=== PATIENT | male | born 1930 | race Caucasian/White ===

== ENCOUNTER 2018-03-20 01:28 | Inpatient (IN) | payer OTHER, BC ==
--- NOTE | 2018-03-20 01:31 | EDPHY ---
H & P Time Seen by Provider: 03/20/18 01:31 HPI/ROS: HPI CHIEF COMPLAINT: Lower abdominal pain, nausea, vomiting HISTORY OF PRESENT ILLNESS: 87-year-old male, presents emergency room from a private residence with his by EMS for nausea vomiting and lower abdominal pain. Patient states he has developed lower abdominal pain around 8:30 p.m.. Sore having nausea vomiting. He felt very lightheaded and dizzy. Denies chest pain or shortness of breath. Main complaint ongoing nausea. His called 911. Patient states he does not take any medications Past Medical History: Patient denies any significant medical history Past Surgical History: Denies any significant surgical history Social History: Patient denies drugs alcohol tobacco. Family History: Noncontributory ROS REVIEW OF SYSTEMS: 10 Systems were reviewed and negative with the exception of the elements mentioned in the history of present illness. Exam Constitutional elderly nontoxic triage nursing summary reviewed, vital signs reviewed, awake/alert. Noted be bradycardic upon arrival Eyes normal conjunctivae and sclera, EOMI, PERRLA. HENT normal inspection, atraumatic, moist mucus membranes, no epistaxis, neck supple/ no meningismus, no raccoon eyes. Respiratory clear to auscultation bilaterally, normal breath sounds, no respiratory distress, no wheezing. Cardiovascular bradycardic, regular rhythm, no murmur, no edema, distal pulses normal. Gastrointestinal soft, non-tender, no rebound, no guarding, normal bowel sounds, no distension, no pulsatile mass. Genitourinary no CVA tenderness. Musculoskeletal no midline vertebral tenderness, full range of motion, no calf swelling, no tenderness of extremities, no meningismus, good pulses, neurovascularly intact. Skin pink, warm, & dry, no rash, skin atraumatic. Neurologic awake, alert and oriented x 3, AAOx3, moves all 4 extremities equally, motor intact, sensory intact, CN II-XII intact, normal cerebellar, normal vision, normal speech. Psychiatric normal mood/affect. Heme/Lymph/Immune no lymphadenopathy. Differential diagnosis includes but is not limited to and in no particular order : Bowel obstruction, appendicitis, gallbladder disease, diverticulitis, colitis , enteritis, perforated viscus, gastritis, GERD, esophagitis, urinary tract infection, pyelonephritis, kidney stones Medical Decision Making: Plan for this patient IV establishment IV fluid bolus , EKG due to bradycardia, electrolytes, check troponin, chest x-ray, CT scan abdomen pelvis with IV contrast to nausea vomiting and abdominal pain. Re-evaluation: EKG interpretation by me on record in [employer] system. Impression time of EKG 1:35 a.m., sinus bradycardia rate of 39 RI interval 328, Q-waves to 3 AVF, T -wave abnormalities V4 V5 V6. 0152: Spoke with Dr. Torrez, he has reviewed this patient's bradycardic EKG in the setting that has Q-waves in inferior leads, some T-wave abnormalities in V4 V5 V6 is noted to be very bradycardic. Minimal ST elevation in the lateral leads. The patient does not have chest pain. Dr Torrez reviewed this EKG does not feel this is ischemic EKG believes this is bradycardic due to underlying GI illness with nausea vomiting. Recommends giving a dose atropine. IV fluids. Would not recommend a cardiac alert. 0200: Patient was given 1 mg IV atropine, and IV fluids. Current heart rate is in the 70s. EKG interpretation by me on record in [employer] system. Impression time of EKG this is a repeat EKG 2:35 a.m., sinus rhythm rate of 87 with PVC present. No ST elevation. Much improved from previous EKG that was bradycardic most likely vagal response. CT scan abdomen pelvis with IV contrast called to me by Dr. Willis. Negative for acute inflammatory process. Please see full dictation for details of the report. Chest x-ray shows cardiomegaly. Hypoinflated lungs. CT scan shows no evidence of acute inflammatory process. Urinalysis still pending. Patient's heart rate is much improved in the 60s after 1 of atropine IV fluids. Most likely vagal response causing bradycardia. Patient will be admitted overnight for observation to Dr. Vasquez. Plan for admission bradycardia. Plan for admission for nausea vomiting and abdominal pain and bradycardia. Source: Patient, EMS - Personal History Tetanus Vaccine Date: unknown - Medical/Surgical History Hx Asthma: No Hx Chronic Respiratory Disease: No Hx Diabetes: No Hx Cardiac Disease: No Hx Renal Disease: No Hx Cirrhosis: No Hx Alcoholism: No Hx HIV/AIDS: No Hx Splenectomy or Spleen Trauma: No Other PMH: enlarged prostate, intermittent PVCs, appendectomy, inguinal hernia repair - Social History Smoking Status: Never smoked Constitutional: Initial Vital Signs Temperature (C) 36.3 C 03/20/18 01:34 Heart Rate 42 L 03/20/18 01:34 Respiratory Rate 18 03/20/18 01:34 Blood Pressure 105/51 L 03/20/18 01:34 O2 Sat (%) 93 03/20/18 01:34 O2 Delivery Mode Nasal Cannula O2 (L/minute) 3 Allergies/Adverse Reactions: ofloxacin [From Floxin] Allergy (Intermediate, Verified 02/10/13 14:40) Rash Sulfa (Sulfonamide Antibiotics) Allergy (Verified 05/02/14 16:48) Home Medications: Medication Instructions Recorded Carboxymethylcellulose 1% [Refresh 1 drop EACHEYE DAILY PRN 03/20/18 Celluvisc (*)] Finasteride [Proscar 5 MG (*)] 5 mg PO DAILY 03/20/18 Multivitamins [Multivitamin (*)] 1 each PO DAILY 03/20/18 [place]ternut-3 Fatty Acids [Fish Oil 1000 1,000 mg PO DAILY 03/20/18 mg (*)] Medical Decision Making - Data Points Laboratory Results: Laboratory Results 03/20/18 01:50 03/20/18 01:48 Medications Given: Acetaminophen (Tylenol) 1,000 mg PO TID PRN PRN Reason: Mild to moderate pain Stop: 09/16/18 03:33 Last Admin: 03/20/18 21:28 Dose: 500 mg Enoxaparin Sodium (Lovenox) 40 mg SC DAILY SCOTTIE Stop: 09/16/18 08:59 Last Admin: 03/20/18 08:18 Dose: 40 mg Finasteride (Proscar) 5 mg PO DAILY SCOTTIE Stop: 09/16/18 10:59 Last Admin: 03/20/18 12:02 Dose: 5 mg Sodium Chloride (Ns) 1,000 mls @ 100 mls/hr IV CONT SCOTTIE Stop: 09/16/18 04:14 Last Admin: 03/20/18 15:36 Dose: 1,000 mls Ceftriaxone Sodium/Dextrose (Rocephin 1 Gm (Premix)) 50 mls @ 100 mls/hr IV DAILY SCOTTIE PRN Reason: Protocol Stop: 04/19/18 12:59 Last Admin: 03/20/18 13:40 Dose: 50 mls Pantoprazole Sodium (Protonix) 40 mg IVP DAILY SCOTTIE Stop: 09/16/18 12:44 Last Admin: 03/20/18 13:39 Dose: 40 mg Discontinued Medications Atropine Sulfate (Atropine Sulfate) 1 mg IVP EDNOW ONE Stop: 03/20/18 01:51 Last Admin: 03/20/18 01:59 Dose: 1 mg Sodium Chloride (Ns) 500 mls @ 1,000 mls/hr IV EDNOW ONE PRN Reason: Protocol Stop: 03/20/18 02:04 Last Admin: 03/20/18 01:43 Dose: 500 mls Sodium Chloride (Ns) 500 mls @ 0 mls/hr IV ONCE ONE PRN Reason: Wide Open Stop: 03/20/18 01:54 Last Admin: 03/20/18 02:00 Dose: 500 mls Sodium Chloride (Ns) 1,000 mls @ 0 mls/hr IV ONCE ONE PRN Reason: Wide Open Stop: 03/20/18 02:27 Last Admin: 03/20/18 02:27 Dose: 1,000 mls Promethazine HCl (Phenergan) 6.25 mg IVP ONCE ONE Stop: 03/20/18 02:17 Last Admin: 03/20/18 02:27 Dose: 6.25 mg Promethazine HCl (Phenergan) 6.25 mg IVP ONCE ONE Stop: 03/20/18 03:28 Last Admin: 03/20/18 03:30 Dose: 6.25 mg Point of Care Test Results: Chemistry 03/20/18 01:50 POC Troponin I 0.01 ng/mL ng/mL (0.00-0.08) Departure - Departure Disposition: [facility] In[facility] Acute Clinical Impression: Bradycardia Abdominal pain Qualifiers: Abdominal location: unspecified location Qualified Code(s): R10.9 - Unspecified abdominal pain Vomiting Qualifiers: Vomiting type: unspecified Vomiting Intractability: non-intractable Nausea presence: with nausea Qualified Code(s): R11.2 - Nausea with vomiting, unspecified Condition: Critical
[2018-03-20] MEDS ORDERED: NS 500 ML IV ONE ×2 (01:35→01:53)
[2018-03-20] MEDS ORDERED: ATROPINE SULFATE 1 MG/ML VIAL IVP ONE (01:50)
[2018-03-20 01:58] LABS: PLATELET COUNT 150 10^3/uL (150-400)
[2018-03-20 02:06] LABS: INR 1.1 (0.83-1.16); PROTIME(PATIENT) 14.4 SEC (12.0-15.0)
[2018-03-20] MEDS ORDERED: IOPAMIDOL (ISOVUE-300) 100 ML BTL ONE (02:09)
[2018-03-20] MEDS ORDERED: PROMETHAZINE HCL 25 MG/ML INJ IVP ONE ×2 (02:16→03:27)
[2018-03-20] MEDS ORDERED: NS 1,000 ML IV ONE (02:26)
[2018-03-20] MEDS ORDERED: PROMETHAZINE HCL 25 MG/ML INJ ONE (03:28)
[2018-03-20] MEDS ORDERED: ACETAMINOPHEN 325 MG TAB PO PRN (03:34)
[2018-03-20] MEDS ORDERED: ONDANSETRON DISINTEGRATING 4 MG TAB PO PRN (03:34)
[2018-03-20] MEDS ORDERED: ONDANSETRON 4 MG/2 ML VIAL IVP PRN (03:34)
--- NOTE | 2018-03-20 03:50 | PDGENHP ---
History and Physical - Chief Complaint Abominal pain - History of Present Illness 87 yo M w/ minimal PMHx presents with abdominal pain. He says this pain started around 8 PM. He has a hard time describing the pain. It started around 8 PM after eating a rotisserie chicken earlier in the day. He started vomiting shortly after the pain started. He states the pain is supra-pubic and derick- umbilical. He says the chicken did not taste right. He ate more of the chicken than his or daughter. He has not had similar symptoms in a long time. This reminds him of a time he got sick after eating in a restaurant 40 years ago an he got sick in a motel room. He denies any recent illness or sick contacts. Upon arrival in the ED patient was noted to be bradycardic to the 30's in setting of severe pain. Cardiology was called who thought this was vagal induced bradycardia from the pain. He was treated with atropine and heart rate has been >[address] scan in the ED did not reveal acute findings. Case discussed with ED physician Dr. Rausch; records reviewed in [facility] and [place]. History Information - Allergies/Home Medication List Allergies/Adverse Reactions: ofloxacin [From Floxin] Allergy (Intermediate, Verified 02/10/13 14:40) Rash Sulfa (Sulfonamide Antibiotics) Allergy (Verified 05/02/14 16:48) Home Medications: Alpha Lipoic Acid [Alpha Lipoic Acid] 200 mg PO 02/10/13 [Last Taken Unknown] Bimatoprost 0.01% [Lumigan 0.01% (RX)] 1 drops EACHEYE HS 02/10/13 [Last Taken Unknown] Finasteride [Proscar] 5 mg PO DAILY 02/10/13 [Last Taken Unknown] Furosemide [Lasix] 20 mg PO 02/10/13 [Last Taken Unknown] Glucosam/Chondr/Collagn/Hyalur [Glucosamine & Chondroitin Cap] 1 each PO [Last Taken Unknown] Multivitamins [Tab-A-Joshua] 1 each PO DAILY 02/10/13 [Last Taken Unknown] [place]-3/Dha/Epa/Fish Oil [Fish Oil] 500 mg PO 02/10/13 [Last Taken Unknown] Optive Lub Eye Drops 02/10/13 [Last Taken Unknown] Tamsulosin HCl [Flomax 0.4 MG (RX)] 0.4 mg PO DAILY8 02/10/13 [Last Taken Unknown] Ubidecarenone [Coq-10] 30 mg PO 02/10/13 [Last Taken Unknown] I have personally reviewed and updated: family history, medical history - Past Medical History arthritis Additional medical history: BPH - Surgical History Reports: appendectomy, hernia repair - Family History Additional family history: CHF - Social History Smoking Status: Never smoked Review of Systems Review of Systems: ROS: 10pt was reviewed & negative except for what was stated in HPI & below Physical Exam Physical Exam: Temp Pulse Resp BP Pulse Ox 36.4 C 88 16 123/54 H 94 03/20/18 03:30 03/20/18 03:30 03/20/18 03:30 03/20/18 03:30 03/20/18 03:30 Constitutional: appears nourished, uncomfortable Eyes: PERRL, EOMI Ears, Nose, Mouth, Throat: moist mucous membranes, no oral mucosal ulcers Cardiovascular: regular rate and rhythym, no murmur, rub, or gallop Respiratory: no respiratory distress, clear to auscultation Gastrointestinal: normoactive bowel sounds, soft, non-tender abdomen Skin: warm, normal color Musculoskeletal: full muscle strength, no muscle tenderness Neurologic: AAOx3, CN II-XII Intact Psychiatric: interacting appropriately, not anxious Lab Data & Imaging Review 03/20/18 01:50 03/20/18 01:48 WBC 7.47 10^3/uL (3.80-9.50) 03/20/18 01:50 RBC 5.30 10^6/uL (4.40-6.38) 03/20/18 01:50 Hgb 16.8 g/dL (13.7-17.5) 03/20/18 01:50 Hct 50.3 % (40.0-51.0) 03/20/18 01:50 MCV 94.9 fL (81.5-99.8) 03/20/18 01:50 MCH 31.7 pg (27.9-34.1) 03/20/18 01:50 MCHC 33.4 g/dL (32.4-36.7) 03/20/18 01:50 RDW 14.0 % (11.5-15.2) 03/20/18 01:50 Plt Count 150 10^3/uL (150-400) 03/20/18 01:50 MPV 9.7 fL (8.7-11.7) 03/20/18 01:50 Neut % (Auto) 77.3 % (39.3-74.2) H 03/20/18 01:50 Lymph % (Auto) 14.7 % (15.0-45.0) L 03/20/18 01:50 Mcnairy % (Auto) 6.7 % (4.5-13.0) 03/20/18 01:50 Eos % (Auto) 0.8 % (0.6-7.6) 03/20/18 01:50 Baso % (Auto) 0.1 % (0.3-1.7) L 03/20/18 01:50 Nucleat RBC Rel Count 0.0 % (0.0-0.2) 03/20/18 01:50 Absolute Neuts (auto) 5.77 10^3/uL (1.70-6.50) 03/20/18 01:50 Absolute Lymphs (auto) 1.10 10^3/uL (1.00-3.00) 03/20/18 01:50 Absolute Monos (auto) 0.50 10^3/uL (0.30-0.80) 03/20/18 01:50 Absolute Eos (auto) 0.06 10^3/uL (0.03-0.40) 03/20/18 01:50 Absolute Basos (auto) 0.01 10^3/uL (0.02-0.10) L 03/20/18 01:50 Absolute Nucleated RBC 0.00 10^3/uL (0-0.01) 03/20/18 01:50 Immature Gran % 0.4 % (0.0-1.1) 03/20/18 01:50 Immature Gran # 0.03 10^3/uL (0.00-0.10) 03/20/18 01:50 PT 14.4 SEC (12.0-15.0) 03/20/18 01:48 INR 1.10 (0.83-1.16) 03/20/18 01:48 APTT 33.1 SEC (23.0-38.0) 03/20/18 01:48 VBG Lactic Acid 2.4 mmol/L (0.7-2.1) H 03/20/18 03:10 Sodium 139 mEq/L (135-145) 03/20/18 01:48 Potassium 4.0 mEq/L (3.3-5.0) 03/20/18 01:48 Chloride 106 mEq/L (97-110) 03/20/18 01:48 Carbon Dioxide 20 mEq/l (22-31) L 03/20/18 01:48 Anion Gap 13 mEq/L (6-14) 03/20/18 01:48 BUN 23 mg/dL (7-23) 03/20/18 01:48 Creatinine 1.0 mg/dL (0.7-1.3) 03/20/18 01:48 Estimated GFR > 60 03/20/18 01:48 Glucose 163 mg/dL (70-100) H 03/20/18 01:48 Calcium 9.2 mg/dL (8.5-10.4) 03/20/18 01:48 Magnesium 2.1 mg/dL (1.6-2.3) 03/20/18 01:48 Total Bilirubin 1.2 mg/dL (0.1-1.4) 03/20/18 01:48 Conjugated Bilirubin 0.2 mg/dL (0.0-0.5) 03/20/18 01:48 Unconjugated Bilirubin 1.0 mg/dL (0.0-1.1) 03/20/18 01:48 AST 42 IU/L (17-59) 03/20/18 01:48 ALT 28 IU/L (21-72) 03/20/18 01:48 Alkaline Phosphatase 92 IU/L (38-126) 03/20/18 01:48 POC Troponin I 0.01 ng/mL (0.00-0.08) 03/20/18 01:50 NT-Pro-B Natriuret Pep 697 pg/mL (0-450) H 03/20/18 01:48 Total Protein 7.3 g/dL (6.3-8.2) 03/20/18 01:48 Albumin 3.9 g/dL (3.5-5.0) 03/20/18 01:48 Lipase 148 IU/L (23-300) 03/20/18 01:48 Imaging Review: CT A/P: CT AP Punctate calcs pancreas; sequelae of chronic pancreatitis, Nothing acute Resolved panc cyst in tail Renal cysts Very large prostate about 3 bladder calculi in Bladder subtle hazy mesentary centrally w/o etiology DDD Stable small 1cm lucency left iliac wing Spoke w Dr Rausch at 320am Visualized and Interpreted EKG results: Yes EKG Interpretation: Positive for: other (Sinus abdiaziz, PVCs) Assessment & Plan Assessment: 87 yo M presents with abdominal pain, vomiting, and sinus bradycardia. Plan: 1. Abdominal pain - Associated with nausea and vomiting; symptoms started after eating rotisserie chicken that "did not taste right". CT A/P in the ED did not reveal alternate etiology. He denies recent illnesses or sick contacts. - Admit for observation - mIVF, pain control, anti-emetics PRN - Clear liquids, ADAT - Check UA 2. Sinus bradycardia - I suspect this was vagally mediated bradycardia due to pain and vomiting. Cardiology consulted in the ED who agreed with this interpretation. - S/p atropine x1, bradycardia resolved - Observe in PCU - Monitor on telemetry 3. Lactic acidosis - Lactate 2.4 on admission, suspect due to nausea and vomiting. CT scan and abdominal exam reassuring. - Continue IVF 4. BPH - Large prostate demonstrated on CT; patient tells me he takes no medication. Diet - Clears, ADAT Code - Full Ppx - LMWH Dispo - Admit under observation status
[2018-03-20] MEDS: ENOXAPARIN 40 MG/0.4 ML SYR SC SCH (08:18)
--- NOTE | 2018-03-20 11:29 | ASMTCMCOM ---
CM Note CM Note Notes: Pts case reviewed in tx rounds. Pt is a 87 y/o man admitted for abdominal pain. PT has been ordered and awaiting recommendations. Needs are TBD at this time. CM to follow. Plan: TBD Date Signed: 03/20/2018 11:28 AM Electronically Signed By:MICHAEL Lua
[2018-03-20] MEDS: FINASTERIDE 5 MG TAB PO SCH (12:02)
--- NOTE | 2018-03-20 12:47 | HOSPPROG ---
Hospitalist Progress Note Assessment/Plan: * N/V/abd pain -CT negative -still vomiting - not tolerating clear liquids -? viral gastroenteritis vs food borne -continue supportive care - consider further w/u if N/V persists * Hypoxia -check CXR * Bradycardia - symptomatic on presentation but complicated given N/V -check ECHO -d/w Fabi Jones - cardiology to consult * Chronic pancreatitis - denies and Etoh history -denies any digestive issues prior to acute onset at presentation * Lactate elevation - suspect due to dehydration - now clearing * UTI -IV ceftriaxone pending culture * BPH -Proscar Subjective: Tolerated broth but then vomited it up. Objective: Vital Signs Temp Pulse Resp BP Pulse Ox 36.4 C 50 L 25 H 127/63 H 93 03/20/18 07:25 03/20/18 07:25 03/20/18 07:25 03/20/18 07:25 03/20/18 07:25 03/19/18 03/20/18 03/21/18 05:59 05:59 05:59 Intake Total 2000 500 Output Total 250 Balance 2000 250 PT 14.4 SEC (12.0-15.0) 03/20/18 01:48 INR 1.10 (0.83-1.16) 03/20/18 01:48 EKG viewed my personal interpretation is - long KS interval, bradycardic, ectopy CXR - negative Laboratory Tests 03/20/18 03/20/18 03/20/18 01:48 01:50 01:50 WBC 7.47 Hct 50.3 VBG Lactic Acid POC Troponin I 0.01 NT-Pro-B Natriuret Pep 697 H 03/20/18 03/20/18 03/20/18 03:10 04:11 11:30 WBC Hct VBG Lactic Acid 2.4 H 2.6 H 1.9 POC Troponin I NT-Pro-B Natriuret Pep - Physical Exam Constitutional: no apparent distress, appears nourished, not in pain Cardiovascular: regular rate and rhythym, no murmur, rub, or gallop Respiratory: no respiratory distress, no rales or rhonchi, clear to auscultation Gastrointestinal: normoactive bowel sounds, soft, non-tender abdomen, no palpable masses Skin: no rashes or abrasions, no fluctuance, no induration Neurologic: AAOx3, sensation intact bilaterally Psychiatric: interacting appropriately, not anxious, not encephalopathic, thought process linear ICD10 Worksheet Patient Problems: Problems Problem Status Onset Abdominal pain Acute Bradycardia Acute Vomiting Acute
--- NOTE | 2018-03-20 12:49 | ASMTCMCOM ---
CM Note CM Note Notes: CM spoke to pts daughter Christina. Christina will be going out of town tomorrow and requested a list of non skilled home care to be w/ pts . Christina also wanted a list/cost of transportation to get pt home. Date Signed: 03/20/2018 12:49 PM Electronically Signed By:MICHAEL Lua
[2018-03-20] MEDS: PANTOPRAZOLE SODIUM 40 MG VIAL IVP SCH (13:39)
[2018-03-20] MEDS: NS 1,000 ML IV SCH (15:36)
--- NOTE | 2018-03-20 16:17 | GCON ---
CARDIOLOGY CONSULTATION REFERRING PHYSICIAN: Sameera Garcia MD REASON FOR CONSULTATION: We were asked by Dr. Garcia of [facility] to evaluate the patient for his arrhythmias and bradycardia detected on telemetry. HISTORY OF PRESENT ILLNESS: The patient is an 87-year-old male with a past medical history significant for BPH and PVCs and PACs, primarily, who presented to the emergency department secondary to abdominal pain. He reports being constipated starting approximately 4 or 5 days ago. He had taken a cocktail of medications, including MiraLAX, milk of magnesia, and prune juice earlier in this week. He proceeded to have multiple bowel movements over a couple of days. On Saturday night, which was last night, he had rotisserie chicken, and it was felt that there was something not quite right about the taste of that meal. He started to note a lower abdominal pain and dry heaving. He presented to the emergency department and had a CT of the abdomen, which showed diverticula without diverticulitis, an enlarged prostate, as well as pancreatic calcifications but no acute abdominal process. In the ED, he had some bradycardia with heart rate down to 30s, which continues to occur on telemetry. He reports that the lower abdominal pain has resolved. He had rather severe vomiting after trying chicken broth today. With the episodes of pain, he did feel lightheaded. He reports a lifetime history of PVCs and PACs that are minimally symptomatic. He has not been experiencing chest pain or dyspnea. PAST MEDICAL HISTORY: Includes arthritis and BPH. PAST SURGICAL HISTORY: Includes appendectomy and hernia repair. OUTPATIENT MEDICATIONS: Reviewed. ALLERGIES: Ofloxacin and sulfonamides. SOCIAL HISTORY: Patient is . He and his live independently in [place]. He denies any tobacco or significant alcohol intake. REVIEW OF SYSTEMS: As per HPI. A complete 10-point review of systems was obtained and is negative, except for what is dictated. FAMILY HISTORY: Family history of CHF. PHYSICAL EXAMINATION: VITAL SIGNS: BP of 116/53, heart rate of 40, respirations 21, O2 saturation 93% on room air, followed by an O2 saturation of 81% on room air, temp of 97.5 degrees Fahrenheit. GENERAL: He is a pleasant male in no apparent distress. He is well groomed. EYES: Without scleral icterus. HEART: Regular rate and rhythm, with no rubs, gallops, or murmurs. LUNGS: Clear. ABDOMEN: Nontender on palpation. He has bowel sounds present. : No Faria present. SKIN: Warm, with normal color. NEURO: No focal deficits detected. PSYCH: The patient is gregarious. LABORATORY DATA: CBC with WBC of 7.47, hemoglobin 16.8, hematocrit 50.3, platelet count of 150. BMP with sodium 139, potassium 4, chloride 106, CO2 20, BUN 23, creatinine 1, glucose of 163. NT proBNP of 697. Lipase of 148. A 12- lead ECG personally interpreted demonstrates sinus bradycardia with a severe first-degree AV block, and a followup ECG shows sinus rhythm with likely Wenckebach pattern. PVCs present. There is an incomplete right bundle branch block. Abdominal CT results reviewed and as dictated in HPI. Chest x-ray shows no definite pneumonia or CHF. IMPRESSION AND PLAN: The patient is an 87-year-old male who presents with abdominal pain, vomiting, and bradycardia. 1. Bradycardia. This is likely vagal in nature due to abdominal pain. We will continue to monitor him on telemetry. 2. Likely Mobitz type 1 on telemetry. An echo has been ordered. We will continue to follow him on telemetry. We will review strips with EP service. 3. Abdominal pain. This is being worked up currently by Hospital Medicine and may be the cause of some of the arrhythmias that are currently being seen in a vagally mediated fashion. We will follow along in patient's care in this hospitalization. /[id number]/MODL MTDD
--- NOTE | 2018-03-20 16:37 | PDMN ---
Medical Necessity Medical necessity: Change to IP, as of 03/20/18, per MD & MCG [id number]; los >2 mn for ongoing management of N/V w/inability to maintain oral hydration, abdominal pain, hypoxia, bradycardia & UTI; requiring further workup/monitoring, Cardiology consult, IVFs, IV abx & IV Protonix; hx chronic pancreatitis
--- NOTE | 2018-03-20 16:39 | ECHO ---
[email or web address] [address] [address] Main: [phone] Fax: Transthoracic Echocardiogram Name: CHENTE ENCISO MR#: [id number] Study Date: 03/20/2018 Study Time: 03:14 PM Date of : 1930 Age: 87 year(s) Height: 170.2 cm (67 in.) Weight: 97.52 kg (215 lb.) BSA: 2.09 m2 Gender: Male Examination: Echo Indication: Bradycardia Image Quality: Fair Contrast: Requested by: Sameera Garcia BP: 116 mmHg/53 mmHg Heart Rate: Rhythm: Indication: Bradycardia Procedure Staff Band Ripsaw Operator: Laurie Marsh [facility] Reading Physician: Timothy Hudson MD Requesting Provider: Conclusions: Low normal left ventricular systolic function. EF is 46 %. LV septal,inferior and entire apical segments are akineti.. The left atrium is mildly to moderately dilated. 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 Mild to moderate mitral regurgitation. The aortic valve is tri-leaflet. Moderate tricuspid regurgitation is present. RVSP is 30mmHG.. Incidental finding - The thoracic aorta appears to be enlarged ( at least 4.5 cm).. Measurements: Chambers Valvular Assessment AV/MV Valvular Assessment TV/PV Normal Normal Normal Name Value Range Name Value Range Name Value Range Ao Obdulia (MM): 3.8 cm (2.2 cm-3.7 AV Vmax: 1.13 m/s (1 m/s-1.7 TR Vmax: 2.71 mm/s ( - ) cm) m/s) TR PGmax: 29 mmHg ( - ) IVSd (2D): 0.6 cm (0.6 cm-1.1 AV meanP mmHg ( - ) syst. PAP: 34 mmHg ( - ) cm) MV E Vmax: 0.46 m/s ( - ) LVDd (2D): 5.6 cm (4.2 cm-5.9 MV A Vmax: 0.87 m/s ( - ) cm) MV E/A: 0.53 ( - ) LVDs (2D): 3.4 cm (2.1 cm-4 cm) LVPWd (2D): 0.9 cm (0.6 cm-1 cm) LVEF (BP): 46 % (>=55 %) Continued Measurements: Chambers Valvular Assessment AV/MV Valvular Assessment TV/PV Patient: CHENTE ENCISO Study Date: 03/20/2018 Page 1 of 2 03:14 PM Name Value Name Value Name Value LADs: 4.8 cm MV E' Septal: 0.04 m/s CVP (est.): 5 mmHg LADs Lon.1 cm MV E/E' Septal: 11.20 LA Area: 28.3 cm2 MV E/E' Lateral: 6.80 LA Volume: 101 ml LA Volume Index: 48.3 ml/m2 Additional Vessels Name Value Ao Ascendin.5 cm Findings: Left Ventricle: Normal size left ventricle. No LV hypertrophy. Low normal left ventricular systolic function. EF is 46 %. LV septal,inferior and entire apical segments are akineti.. Right Ventricle: Normal size right ventricle. Left Atrium: The left atrium is mildly to moderately dilated. 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 Right Atrium: The right atrium is mildly dilated. Mitral Valve: There is mild thickening of the mitral valve leaflets. Mild to moderate mitral regurgitation. Aortic Valve: The aortic valve is normal in appearance and function. The aortic valve is tri-leaflet. Trivial aortic valve regurgitation. Tricuspid Valve: The tricuspid valve is normal in appearance and function. Moderate tricuspid regurgitation is present. The pulmonary artery pressure is normal. RVSP is 30mmHG.. Pulmonic Valve: The pulmonic valve is normal in appearance and function. Aorta: The aorta is normal. Pericardium: No pericardial effusion. Exam Comments: Incidental finding - The thoracic aorta appears to be enlarged ( at least 4.5 cm).. (No Signature Object) Patient: CHENTE ENCISO Study Date: 03/20/2018 Page 2 of 2 03:14 PM [id number]
[2018-03-20] MEDS: ACETAMINOPHEN 500 MG TAB PO PRN (21:28)
--- NOTE | 2018-03-20 23:58 | CPEKG ---
Test Reason : OPEN Blood Pressure : / mmHG Vent. Rate : 039 BPM Atrial Rate : 039 BPM P-R Int : 328 ms QRS Dur : 131 ms QT Int : 631 ms P-R-T Axes : 048 -69 -63 degrees QTc Int : 509 ms Sinus bradycardia Prolonged HI interval Nonspecific IVCD with LAD Probable inferior infarct, age indeterminate Abnrm T, consider ischemia, anterolateral lds Minimal ST elevation, lateral leads Confirmed by Anuj Stubbs ([id number]) on 03/20/2018 11:57:53 PM Also confirmed by Anuj Stubbs ([id number]) on 03/20/2018 11:58:05 PM Referred By: Confirmed By:Anuj Stubbs
--- NOTE | 2018-03-20 23:58 | CPEKG ---
Test Reason : OPEN Blood Pressure : / mmHG Vent. Rate : 087 BPM Atrial Rate : 085 BPM P-R Int : 196 ms QRS Dur : 119 ms QT Int : 447 ms P-R-T Axes : 000 -61 004 degrees QTc Int : 538 ms Sinus rhythm Multiform ventricular premature complexes Sinus pause LAD, consider left anterior fascicular block Confirmed by Anuj Stubbs ([id number]) on 03/20/2018 11:57:53 PM Also confirmed by Anuj Stubbs ([id number]) on 03/20/2018 11:58:05 PM Referred By: Confirmed By:Anuj Stubbs
[2018-03-21 04:37] LABS: PLATELET COUNT 135 10^3/uL (150-400)
[2018-03-21] MEDS: PANTOPRAZOLE SODIUM 40 MG VIAL IVP SCH (08:56)
[2018-03-21] MEDS: FINASTERIDE 5 MG TAB PO SCH (08:56)
[2018-03-21] MEDS: ENOXAPARIN 40 MG/0.4 ML SYR SC SCH (08:57)
--- NOTE | 2018-03-21 11:23 | CPEKG ---
Test Reason : OPEN Blood Pressure : / mmHG Vent. Rate : 042 BPM Atrial Rate : 063 BPM P-R Int : 317 ms QRS Dur : 117 ms QT Int : 553 ms P-R-T Axes : 047 -88 -84 degrees QTc Int : 463 ms Sinus bradycardia Prolonged WV interval Nonspecific IVCD with LAD Inferior infarct, age indeterminate Abnrm T, consider ischemia, anterolateral lds Heart rates have slowed dramatically since the prior ECG Confirmed by Ollie Diamond ([id number]) on 03/21/2018 11:23:08 AM Referred By: Confirmed By:Ollie Diamond
--- NOTE | 2018-03-21 11:40 | PDCARPN ---
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 Found to have bradycardia. Strips reviewed with Dr. 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 Additionally, echo shows reduced EF at 45% and segmental WMA including inferior, septal, and the entire apex being akinetic. #. abnormal echo: our plan was to do Lexiscan but this is being held until pacer implantation is complete extensive WMA suggestive of likely previous AK we discussed possibility of LHC will discuss with supervising notch grinder R/B/A of [facility] reviewed #. 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 abdominal pain/nausea/V: improving per hospitalist service Plan: 03/21/18 11:33 03/21/18 11:40 Subjective: Pt is gregarious and tells tangential stories. Reviewed/Discussed With: hospitalist (Dr. Garcia) Objective: Vital Signs (8 Hrs) Temp Pulse Resp BP Pulse Ox 03/21/18 09:30 44 L 116/52 L 96 03/21/18 08:00 98.1 F 42 L 21 H 118/53 L 94 03/21/18 04:00 98.4 F 40 L 20 99/39 L 99 Intake/Output (24 Hrs) 03/20/18 03/21/18 03/22/18 05:59 05:59 05:59 Intake Total 3300 Output Total 550 200 Balance 2750 -200 Intake: Oral (ml) 900 IV Infused (ml) 2400 Ns 1,000 ml @ 100 mls/hr 2350 IV CONT SCOTTIE Rx#: [id number] cefTRIAXone 1 GM/DEXTROSE 50 50 ml @ 100 mls/hr IV DAILY SCOTTIE Rx#:[id number] Output: Urine (ml) 550 200 Incontinence 100 Toilet 450 100 Urinal 100 Other: Weight 98.4 kg Number of Voids Incontinence 2 1 Toilet 1 Urinal 1 Number of Stools Bedside Commode 0 Number of Emesis 1 Occurrences Result Diagrams: 03/21/18 03:54 03/21/18 03:54 Telemetry: reviewed Echocardiogram: reviewed - Physical Exam Constitutional: no apparent distress Eyes: anicteric sclera Cardiovascular: regular rate and rhythm Respiratory: clear to auscultate bilat, no crackles Gastrointestinal: normoactive bowel sounds, no tenderness Genitourinary: No paredes in urethra Neurologic: AAOx3 Psychiatric: cooperative, interactive ICD10 Worksheet Patient Problems: Problems Problem Status Onset Abdominal pain Acute Bradycardia Acute Vomiting Acute
[2018-03-21] MEDS: NS 1,000 ML IV SCH (14:56)
--- NOTE | 2018-03-21 16:08 | ASMTCMCOM ---
CM Note CM Note Notes: Pts case discussed in tx rounds. CM met w/ pt for dispo planning. PT is recommending SNF. CM provided pt w/ senior blue book. Pt would like referrals made to [facility] and [facility]. Referrals sent. Non triggering pasrr completed. CM to follow. Plan: SNF Date Signed: 03/21/2018 04:08 PM Electronically Signed By:MICHAEL Lua
--- NOTE | 2018-03-21 17:42 | HOSPPROG ---
Hospitalist Progress Note Assessment/Plan: * Complete heart block -pacemaker indicated - arrangements per cardiology * N/V/abd pain -CT negative -improved - advance diet -? viral gastroenteritis vs food borne * BPH with urinary retention -paredes -on Proscar, add Flomax * New wall motion abnormalities on ECHO -cath vs. stress test after PCM * Chronic pancreatitis - denies and Etoh history -denies any digestive issues prior to acute onset at presentation * Lactate elevation - suspect due to dehydration - now clearing Subjective: No new complaints. 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 - Physical Exam Constitutional: no apparent distress, appears nourished, not in pain Cardiovascular: regular rate and rhythym, no murmur, rub, or gallop Respiratory: no respiratory distress, no rales or rhonchi, clear to auscultation Gastrointestinal: normoactive bowel sounds, soft, non-tender abdomen, no palpable masses Skin: no rashes or abrasions, no fluctuance, no induration Neurologic: AAOx3, sensation intact bilaterally Psychiatric: interacting appropriately, not anxious, not encephalopathic, thought process linear ICD10 Worksheet Patient Problems: Problems Problem Status Onset Bradycardia Acute Abdominal pain Acute Vomiting Acute
[2018-03-22 04:37] LABS: PLATELET COUNT 122 10^3/uL (150-400)
[2018-03-22] MEDS: PANTOPRAZOLE SODIUM 40 MG TAB PO SCH (09:11)
[2018-03-22] MEDS: ENOXAPARIN 40 MG/0.4 ML SYR SC SCH (09:11)
[2018-03-22] MEDS: FINASTERIDE 5 MG TAB PO SCH (09:11)
[2018-03-22] MEDS: TAMSULOSIN HCL 0.4 MG CAP PO SCH (09:11)
--- NOTE | 2018-03-22 11:35 | PDCARPN ---
Cardiology Progress Note Assessment/Plan: Assessment/plan: 87-year-old male admitted with abdominal pain and found to be in complete heart block. No syncope. He is not clinically in heart failure, although echo shows cardiomyopathy with an ejection fraction 45% and regional wall motion abnormalities concerning for coronary disease. 1. Complete heart block: This is intermittent. He is hemodynamically stable and does not require temporary pacemaker. Plan is for permanent pacemaker with Dr. Restrepo, per patient's request, on SaturdayMarch 24. Continue telemetry. Obviously avoid any nodally acting agents. 2. Cardiomyopathy: Does not appear to be in heart failure. Plan for coronary angiography prior to pacemaker on SaturdayMarch 24 to evaluate for coronary disease. No angina. 3. Abdominal pain: Possible gastroenteritis. Improving. His abdominal CT does show chronic pancreatitis. 4. BPH. He has a Faria here. Would attempt to discontinue this prior to pacemaker. Will discuss with Hospital Medicine. He is on BPH medical therapy. 5. Valvular heart disease: [id number] mitral regurgitation. Moderate tricuspid regurgitation. Follow as outpatient. 6. Ascending aortic aneurysm of 4.5 cm seen on echocardiogram. This will require outpatient therapy. Would consider addition of beta-keny or EVERTON- inhibitor after pacemaker. 03/22/18 11:33 Subjective: Denies chest pain, presyncope or dyspnea. Reviewed/Discussed With: hospitalist Objective: Vital Signs (8 Hrs) Temp Pulse Resp BP Pulse Ox 03/22/18 08:36 36.9 C 54 L 16 124/56 H 95 03/22/18 04:00 36.6 C 66 20 113/56 L 94 Intake/Output (24 Hrs) 03/21/18 03/22/18 03/23/18 05:59 05:59 05:59 Intake Total 3300 1025 Output Total 550 2125 Balance 2750 -1100 Intake: Oral (ml) 900 300 IV Infused (ml) 2400 725 Ns 1,000 ml @ 100 mls/hr 2350 725 IV CONT SCOTTIE Rx#: [id number] cefTRIAXone 1 GM/DEXTROSE 50 50 ml @ 100 mls/hr IV DAILY SCOTTIE Rx#:[id number] Output: Urine (ml) 550 2125 Catheter 1625 Incontinence 100 Toilet 450 400 Urinal 100 Other: Weight 98.4 kg Number of Voids Incontinence 2 1 Toilet 3 Urinal 1 Number of Stools Bedside Commode 0 Post Void Residual Scan Volume (ml) Urinal 610 Number of Emesis 1 Occurrences No acute distress. Regular rate and rhythm without murmur or gallop Bibasilar rales without wheeze or rhonchi Trace bilateral lower extremity edema Alert and oriented x3 without gross focal neurologic deficits. Appropriate mood and affect Result Diagrams: 03/22/18 03:48 03/21/18 03:54 EKG: [facility] Telemetry: Periods of CHB ICD10 Worksheet Patient Problems: Problems Problem Status Onset Bradycardia Acute Abdominal pain Acute Vomiting Acute
[2018-03-22] MEDS: NS 1,000 ML IV SCH (14:28)
--- NOTE | 2018-03-22 16:59 | HOSPPROG ---
Hospitalist Progress Note Assessment/Plan: * Complete heart block -pacemaker Saturday with Dr. Restrepo * Viral gastroenteritis - resolved * BPH with urinary retention -paredes placed - 1300cc urine retained -on Proscar, added Flomax * New wall motion abnormalities on ECHO -cath vs. stress test after PCM * Chronic pancreatitis - denies and Etoh history -denies any digestive issues prior to acute onset at presentation * Lactate elevation - suspect due to dehydration - now clearing Subjective: Eating okay Objective: Vital Signs Temp Pulse Resp BP Pulse Ox 36.6 C 118 H 18 123/78 H 95 03/22/18 16:00 03/22/18 16:00 03/22/18 16:00 03/22/18 16:00 03/22/18 16:00 Laboratory Results 03/22/18 03:48 03/21/18 03:54 03/21/18 03/22/18 03/23/18 05:59 05:59 05:59 Intake Total 3300 1025 Output Total 550 2125 350 Balance 2750 -1100 -350 PT 14.4 SEC (12.0-15.0) 03/20/18 01:48 INR 1.10 (0.83-1.16) 03/20/18 01:48 d/w DR. wade regarding paredes options with PCM tele reviewed - intermittent 3rd degree HB - Physical Exam Constitutional: no apparent distress, appears nourished, not in pain Cardiovascular: regular rate and rhythym, no murmur, rub, or gallop Respiratory: no respiratory distress, no rales or rhonchi, clear to auscultation Gastrointestinal: normoactive bowel sounds, soft, non-tender abdomen, no palpable masses Skin: no rashes or abrasions, no fluctuance, no induration Neurologic: AAOx3, sensation intact bilaterally Psychiatric: interacting appropriately, not anxious, not encephalopathic, thought process linear ICD10 Worksheet Patient Problems: Problems Problem Status Onset Bradycardia Acute Abdominal pain Acute Vomiting Acute
[2018-03-23] MEDS: NS 1,000 ML IV SCH ×2 (01:25→08:16)
[2018-03-23] MEDS: ENOXAPARIN 40 MG/0.4 ML SYR SC SCH (09:36)
[2018-03-23] MEDS: PANTOPRAZOLE SODIUM 40 MG TAB PO SCH (09:36)
[2018-03-23] MEDS: TAMSULOSIN HCL 0.4 MG CAP PO SCH (09:36)
[2018-03-23] MEDS: FINASTERIDE 5 MG TAB PO SCH (09:36)
--- NOTE | 2018-03-23 11:51 | PDCARPN ---
Cardiology Progress Note Assessment/Plan: Assessment/plan: 87-year-old male admitted with abdominal pain and found to be in complete heart block. No syncope. Echo shows cardiomyopathy with an ejection fraction 45% and regional wall motion abnormalities concerning for coronary disease. 1. Complete heart block: This is intermittent. He is hemodynamically stable and does not require temporary pacemaker. Plan is for permanent pacemaker with Dr. Restrepo, per patient's request, on SaturdayMarch 24. Continue telemetry. He is not on any nodally acting agents. 2. Cardiomyopathy: Plan for coronary angiography prior to pacemaker on SaturdayMarch 24 to evaluate for coronary disease. No angina. Some edema today but no elevation of JVP or rales. Stop IVF (started for diarrhea and decreased UOP, which have resolved) 3. Abdominal pain: Possible gastroenteritis. Improving. His abdominal CT does show chronic pancreatitis. 4. BPH. He has a Faria here. He is on medical therapy for BPH. Per ID and Dr. Garcia, low risk of infection and unlikely that he will be able to void if Faria removed. He did have 1500 PVR upon admission. 5. Valvular heart disease: [id number] mitral regurgitation. Moderate tricuspid regurgitation. Follow as outpatient. 6. Ascending aortic aneurysm of 4.5 cm seen on echocardiogram. This will require outpatient therapy. Would consider addition of beta-keny or EVERTON- inhibitor after pacemaker. 03/23/18 11:52 Subjective: He reports feeling well. Ambulated without dyspnea or chest pain. He denies presyncope. Reviewed/Discussed With: multidisciplinary team Objective: Vital Signs (8 Hrs) Temp Pulse Resp BP Pulse Ox 03/23/18 11:18 36.7 C 87 16 117/79 95 03/23/18 08:00 36.7 C 75 16 124/69 H 95 03/23/18 04:00 36.3 C 57 L 20 108/65 93 Intake/Output (24 Hrs) 03/22/18 03/23/18 03/24/18 05:59 05:59 05:59 Intake Total 1025 1692 Output Total 2125 825 Balance -1100 867 Intake: Oral (ml) 300 200 IV Infused (ml) 725 1492 Ns 1,000 ml @ 100 mls/hr 725 IV CONT SCOTTIE Rx#: [id number] Ns 1,000 ml @ 100 mls/hr 1492 IV CONT SCOTTIE Rx#: [id number] Output: Urine (ml) 2125 825 Catheter 1625 825 Incontinence 100 Toilet 400 Other: Number of Voids Incontinence 1 Toilet 3 Number of Stools Toilet 1 Post Void Residual Scan Volume (ml) Urinal 610 No acute distress. JVP less than 10. Regular rate and rhythm without murmur or gallop Lungs clear without wheeze rhonchi rales 1+ ankle edema bilaterally Scattered ecchymoses. Faria urine appears dark Result Diagrams: 03/22/18 03:48 03/21/18 03:54 Telemetry: Sinus rhythm. Periods of second-degree heart block. Periods of complete heart block with junctional escape ICD10 Worksheet Patient Problems: Problems Problem Status Onset Bradycardia Acute Abdominal pain Acute Vomiting Acute
--- NOTE | 2018-03-23 15:56 | HOSPPROG ---
Hospitalist Progress Note Assessment/Plan: * Complete heart block - intermittent -pacemaker tomorrow with Dr. Restrepo * Viral gastroenteritis - resolved * BPH with urinary retention -paredes placed - 1300cc urine retained -on Proscar, added Flomax -d/w Dr. Wan -low infection risk given fresh catheter -okay for PCM placement with paredes in place -DC home with paredes - follow-up urology outpatient * New wall motion abnormalities on ECHO -cath vs. stress test after PCM * Chronic pancreatitis - denies any Etoh history -denies any digestive issues prior to acute onset at presentation * Lactate elevation - suspect due to dehydration - now clearing * Right leg edema -check US Subjective: No new complaints. Objective: Vital Signs Temp Pulse Resp BP Pulse Ox 36.4 C 77 16 125/63 H 90 L 03/23/18 15:36 03/23/18 15:36 03/23/18 15:36 03/23/18 15:36 03/23/18 15:36 Laboratory Results 03/22/18 03:48 03/21/18 03:54 03/22/18 03/23/18 03/24/18 05:59 05:59 05:59 Intake Total 1025 1692 600 Output Total 2125 825 375 Balance -1100 867 225 PT 14.4 SEC (12.0-15.0) 03/20/18 01:48 INR 1.10 (0.83-1.16) 03/20/18 01:48 - Physical Exam Constitutional: no apparent distress, appears nourished, not in pain Cardiovascular: regular rate and rhythym, no murmur, rub, or gallop, edema (R>>L ) Respiratory: no respiratory distress, no rales or rhonchi, clear to auscultation Gastrointestinal: normoactive bowel sounds, soft, non-tender abdomen, no palpable masses Skin: no rashes or abrasions, no fluctuance, no induration Neurologic: AAOx3, sensation intact bilaterally Psychiatric: interacting appropriately, not anxious, not encephalopathic, thought process linear ICD10 Worksheet Patient Problems: Problems Problem Status Onset Abdominal pain Acute Bradycardia Acute Vomiting Acute
[2018-03-24] MEDS ORDERED: ceFAZolin 2 GM/DEXTROSE 100 ML IV ONE (08:24)
[2018-03-24] MEDS ORDERED: DIAZEPAM 5 MG TAB PO ONE (08:24)
[2018-03-24] MEDS ORDERED: BACITRACIN IRRIGATION/NS 50,000 UNITS/1,000 ML BTL IRR ONE (08:24)
[2018-03-24] MEDS ORDERED: FAMOTIDINE 20 MG TAB PO ONE (08:24)
[2018-03-24] MEDS ORDERED: diphenhydrAMINE 25 MG CAP PO ONE (08:24)
[2018-03-24] MEDS ORDERED: ASPIRIN EC 325 MG TAB PO ONE (08:24)
[2018-03-24] MEDS ORDERED: NS 1,000 ML IV ONE (08:24)
[2018-03-24] MEDS ORDERED: TEMAZEPAM 15 MG CAP PO PRN (08:24)
[2018-03-24] MEDS ORDERED: NS 1,000 ML IV SCH (08:30)
[2018-03-24] MEDS: PANTOPRAZOLE SODIUM 40 MG TAB PO SCH (09:16)
[2018-03-24] MEDS: FINASTERIDE 5 MG TAB PO SCH (09:16)
[2018-03-24] MEDS: TAMSULOSIN HCL 0.4 MG CAP PO SCH (09:16)
[2018-03-24 10:11] LABS: INR 1.26 (0.83-1.16)
[2018-03-24] MEDS ORDERED: MAGNESIUM HYDROXIDE 30 ML UDCUP PO PRN (10:23)
[2018-03-24] MEDS ORDERED: POLYETHYLENE GLYCOL 3350 17 GM PKT PO PRN (10:23)
[2018-03-24] MEDS ORDERED: LACTULOSE 20 GM/30 ML UDCUP PO PRN (10:23)
[2018-03-24] MEDS ORDERED: BISACODYL 10 MG SUPP PR PRN (10:23)
[2018-03-24] MEDS ORDERED: SODIUM CL NASAL 45 ML BTL EACHNARE PRN (10:24)
--- NOTE | 2018-03-24 12:32 | PDHPUP ---
History & Physical Update H&P update statement: This history and physical update is based on an assessment of the patient which was completed after admission or registration (within 24 hours), but prior to the surgery/procedure. H&P update: H&P reviewed & patient examined (pt with wall motion abnormalities and also third degree heart block), no change in patient's condition since H&P completed
--- NOTE | 2018-03-24 12:32 | PDPROPOC ---
Sedation Plan of Care Sedation Plan of Care: vital signs stable, mental status noted, patient educated of risks, benefits, alternatives, patient can tolerate sedation ASA Classification: ASA 3 Planned drugs: fentanyl, midazolam, other (etomidate if necessary) Mallampati Score: Class 3 Mallampati Reference Image: Patient passed 3-3-2 rule?: Yes (patient high risk because of age...)
[2018-03-24] MEDS ORDERED: MIDAZOLAM 2 MG/2 ML VIAL ONE ×3 (12:34→13:49)
[2018-03-24] MEDS ORDERED: fentaNYL 100 MCG/2 ML INJ ONE ×3 (12:34→13:49)
[2018-03-24] MEDS ORDERED: LIDOCAINE 1% 300 MG/30 ML SDV ONE ×2 (12:34→13:48)
[2018-03-24] MEDS ORDERED: IOPAMIDOL (ISOVUE-370) 150 ML BTL IV ONE (12:35)
--- NOTE | 2018-03-24 13:00 | HOSPPROG ---
Hospitalist Progress Note Assessment/Plan: * Complete heart block - intermittent -pacemaker today with Dr. Restrepo * BPH with urinary retention -paredes placed - 1300cc urine retained -on Proscar, added Flomax -d/w Dr. Wan -low infection risk given fresh catheter -okay for PCM placement with paredes in place -DC home with paredes - follow-up urology outpatient * Cardiomyopathy - EF mildly down which is new, euvolemic -cath prior to pacemaker today * Viral gastroenteritis - resolved * Chronic pancreatitis - denies any Etoh history -denies any digestive issues prior to acute onset at presentation * Lactate elevation - suspect due to dehydration - now clearing * Right leg edema -US negative for DVT Subjective: Had ok night. No new symptoms. RN notes some red tinge to urine in paredes bag. Objective: Vital Signs Temp Pulse Resp BP Pulse Ox 36.7 C 71 17 118/74 95 03/24/18 11:27 03/24/18 11:27 03/24/18 11:27 03/24/18 11:27 03/24/18 11:27 Laboratory Results 03/24/18 09:35 03/24/18 09:35 03/23/18 03/24/18 03/25/18 05:59 05:59 05:59 Intake Total 1692 990 Output Total 825 1275 Balance 867 -285 PT 16.0 SEC (12.0-15.0) H 03/24/18 09:35 INR 1.26 (0.83-1.16) H 03/24/18 09:35 - Physical Exam Constitutional: no apparent distress, appears nourished, not in pain Eyes: PERRL, anicteric sclera, EOMI Ears, Nose, Mouth, Throat: moist mucous membranes, hearing normal, ears appear normal, no oral mucosal ulcers Cardiovascular: regular rate and rhythym, no murmur, rub, or gallop Respiratory: no respiratory distress, no rales or rhonchi, clear to auscultation Gastrointestinal: normoactive bowel sounds, soft, non-tender abdomen, no palpable masses Genitourinary: paredes in urethra Skin: no rashes or abrasions, no fluctuance, no induration, other (bruising over bilateral arms) Musculoskeletal: full muscle strength, no muscle tenderness, normal joint ROM Neurologic: AAOx3 Psychiatric: interacting appropriately, not anxious, not encephalopathic, thought process linear ICD10 Worksheet Patient Problems: Problems Problem Status Onset Abdominal pain Acute Bradycardia Acute Vomiting Acute
[2018-03-24] MEDS ORDERED: IOPAMIDOL (ISOVUE-300) 50 ML VIAL ONE (13:48)
[2018-03-24] MEDS ORDERED: BUPIVACAINE 0.5% 30 ML SDV ONE (13:49)
[2018-03-24] MEDS ORDERED: LIDO/EPI 1% **for epidural** 30 ML SDV ONE (13:49)
[2018-03-24] MEDS ORDERED: FUROSEMIDE 40 MG/4 ML VIAL ONE (15:42)
--- NOTE | 2018-03-24 16:10 | ASMTCMCOM ---
CM Note CM Note Notes: Pt in surgery today for pacer placement and cath. SNF d/c planned, either [facility] or [facility]. Family not available to discuss which facility they would like. CM will continue to follow. Date Signed: 03/24/2018 04:09 PM Electronically Signed By:PHIL Church
[2018-03-24] MEDS ORDERED: METOPROLOL TARTRATE 5 MG/5 ML INJ ONE (16:12)
[2018-03-24] MEDS ORDERED: ATROPINE SULFATE 1 MG/10 ML SYR IVP PRN (17:43)
[2018-03-24] MEDS ORDERED: NITROGLYCERIN 0.4 MG BTL SL PRN (17:43)
--- NOTE | 2018-03-24 18:37 | CPIP ---
DATE OF PROCEDURE: 03/24/2018 PROCEDURE PERFORMED: 1. Selective coronary angiography. 2. Left heart catheterization. 3. Left ventriculogram. 4. Angio-Seal arteriotomy repair. COMPLICATIONS: None. INDICATION/APPROPRIATE USE CRITERIA: This patient has been found to have a cardiomyopathy with regio nal wall motion abnormalities consistent with possible coronary disease as well as third-degree heart block with intermittent lightheadedness and near syncope, as well as chest pain and probable ventric ular tachycardia. The patient also has nonsustained VT on monitoring and frequent PVCs which are mul tifocal. Indication for cardiac catheterization is CCS class 4 chest pain occurring at rest. PROCEDURE IN DETAIL: After informed consent was obtained, n.p.o. status was confirmed, the region of the right groin was cleaned, prepped, and draped in sterile fashion. A micro puncture set was used to gain access to the right common femoral artery with single entry puncture of the vessel. The itzel ent then underwent the previously mentioned diagnostic procedure with use of JL4 and R4 curved luis ry catheters, as well as a 6-Wolof pigtail catheter. Standard wire exchange technique was utilized for all catheter exchanges. The left main coronary lumen is approximately 5 mm in size and tapers away from the ostium, has a 30% lesion proximally. No flow-limiting obstruction is identified. The left main trifurcates into an L AD ramus and circumflex system. The ramus vessel is large, approximately 2.5 mm in size and is free of flow-limiting disease. Likewise, the circumflex obtuse marginal is widely patent without evidence of disease and there is SANIYA-3 flow. The LAD arises in its usual location. There is evidence of ca lcification on cine fluoroscopy consistent with underlying atherosclerosis. Maximal luminal stenosis proximally is approximately 30%. There is SANIYA-3 flow to the diagonal and distal LAD territory. Th ere is a 50% ostial lesion at the takeoff of the principal diagonal from the LAD. There is a 40% les ion of the distal LAD without flow-limiting obstruction. The right coronary artery is dominant giving rise to posterior descending as well as the posterolater al ventricular branch. No significant flow-limiting obstruction is identified. Luminal irregularity consistent with underlying atherosclerosis is present. The patient with left heart catheterization demonstrating elevated left ventricular end-diastolic pressure measured at 24 mmHg. The patient unde rwent left ventriculogram in the LAI projection, demonstrating severely depressed left ventricular sy stolic function with relatively normal contraction at the anterior and inferior base and significantl y decreased contraction of the mid and distal anterior wall apex and distal inferior wall with ejecti on fraction severely reduced and estimated at 20-25 percent with a pattern that would be most consist ent with a stress-induced cardiomyopathy or the so-called takotsubo variant of cardiomyopathy. SUMMARY OF FINDINGS: The patient has non flow-limiting coronary disease as previously described with elevated left ventricular end-diastolic pressure and severely depressed LV systolic function, consis tent with acute systolic heart failure and nonischemic cardiomyopathy. The findings may be consisten t with a takotsubo type cardiomyopathy. A lesion involving the patient's circulation to the AV floridalma artery is not evident on this angiogram and therefore, the patient's third-degree heart block is unl ikely to be related to an ischemic lesion. The patient is felt to be a good candidate for pacemaker. Please see the dictation of the permanent pacemaker report under separate cover. /[id number]/MODL
--- NOTE | 2018-03-24 19:07 | CPIP ---
DATE OF PROCEDURE: 03/24/2018 PROCEDURE: MRI conditional dual-chamber pacemaker insertion. The device is Edora 8 DRT, serial #[id number]. This is an MR conditional device. The ventricular lead is a Biotronik Solia S53, serial #[id number]. The atrial lead is a Solia S45, serial #[id number]. COMPLICATIONS: None. INDICATIONS/APPROPRIATE USE CRITERIA: The patient presented with chest pain and tachycardia by pulse ox of up to 188 with subsequent severe bradycardia, associated lightheadedness and dizziness with hi gh-grade AV block with both second-degree type 2 and third-degree AV block noted on the patient's tel emetry function. The patient is also noted to have a cardiomyopathy, which has now been proven to be a nonischemic myopathy on the basis of catheterization performed prior to the pacemaker insertion. PROCEDURE IN DETAIL: After informed consent was obtained, n.p.o. status was confirmed. The region o f the left subclavicular fossa was cleaned, prepped, and draped in sterile fashion. Approximately 25 cc of 1% lidocaine was utilized for local anesthesia. A #10 blade was used to sharply incise the sk in. Electrocautery and local pressure were used for hemostasis. Sharp and blunt dissection were use d to perform a pacer pocket overlying the pectoralis major fascia. An 18-gauge Cook needle was used to gain access to the left subclavian vein with a single anterior puncture of the vessel and then a g lide angled wire was advanced under direct fluoroscopic guidance into the inferior vena cava. A guillermo ined wire technique and a peel-away sheath were used to place 2 J wires and 2 peel-away sheaths into the left subclavian vein. Ventricular lead was manipulated with care into the RV apex with R-wave am plitude noted to be 7.3 mV on sensing. The lead had a threshold of 0.5 at 0.4 milliseconds, lead imp edance was 643 ohms. The lead was sutured in place with 0 Ethibond after the peel-away sheath was re moved. The procedure was repeated with placement of atrial lead in the right atrial appendage. The P-wave amplitude was measured at 5.2, and the threshold was noted to be 0.6 at 0.4 milliseconds. Pat d impedance 507 ohms. The lead was sutured in place with 0 Ethibond after the peel-away sheath was r emoved. The pocket was thoroughly flushed and checked for bleeders. All the antibiotic soaked gauze was removed from the pocket. The device was then brought to the table and atrial lead was placed in the upper pole lead housing. The setscrew firmly applied. This procedure was repeated for the vent ricular lead. The device was then sutured into place with 0 silk and the skin was closed with a 3 la yered 2-0 and 3-0 Vicryl followed by 4-0 Stratafix subcuticular repair. Excellent wound edge apposit ion and hemostasis were documented. The patient returned to the post cath recovery unit in good and stable condition, where a stat postoperative chest x-ray will be obtained as well as a stat postopera tive EKG. /[id number]/MODL
[2018-03-24] MEDS ORDERED: PHENAZOPYRIDINE HCL 100 MG TAB PO ONE (19:24)
[2018-03-24] MEDS: SENNOSIDES/DOCUSATE SODIUM TAB PO SCH (19:55)
[2018-03-24] MEDS: ACETAMINOPHEN 500 MG TAB PO PRN (21:22)
[2018-03-25] MEDS: PANTOPRAZOLE SODIUM 40 MG TAB PO SCH (09:59)
[2018-03-25] MEDS: FINASTERIDE 5 MG TAB PO SCH (09:59)
[2018-03-25] MEDS: SENNOSIDES/DOCUSATE SODIUM TAB PO SCH ×2 (09:59→20:57)
[2018-03-25] MEDS: TAMSULOSIN HCL 0.4 MG CAP PO SCH (09:59)
[2018-03-25] MEDS: ENOXAPARIN 40 MG/0.4 ML SYR SC SCH (09:59)
--- NOTE | 2018-03-25 10:41 | ASMTCMCOM ---
CM Note CM Note Notes: Pt has chosen to be d/joe to [facility] D/c expected later today. [facility] Date Signed: 03/25/2018 10:40 AM Electronically Signed By:Mesha Torres
[2018-03-25 12:18] LABS: INR 1.23 (0.83-1.16); PROTIME(PATIENT) 15.7 SEC (12.0-15.0)
--- NOTE | 2018-03-25 13:22 | WOCRNPDOC ---
WOCRN Advanced Assessment Note - Skin Integrity Problem, Advanced Assess Coccyx Pressure Injury Dressing Type: Open to Air Exudate Amount: Scant Exudate Characteristic(s): Serous Asiya Wound Tissue: Blanching Wound Bed Color: Carlyle Wound Bed Constitution: Red/Carlyle - Non Granular Tissue (100%) Site Measurement - Head-to-Toe Length X Width X Depth (cm): 0.8x0.8x0.1 Pressure Injury Stage: Stage 2 Pressure Injury Present on Admit: No Skin Integrity Problem Comment: Area along coccyx that is partial thickness tissue loss. This is a stage 2 pressure injury that is hospital acquired. Surrounding area of erythema is blanching. Patient has a waffle cushion in his chair. Education provided to patient on the need to not sit in the chair for extended periods of time, but to stand for a few minutes at a time if possible or to lay in bed on his side. Patient verbalized understanding. There is an area of discoloration on the right buttock that does not appear to be a pressure injury, but more of a natural discoloration of the skin. It is not erythema, but is more brown in color. Wound care will round again next week.
--- NOTE | 2018-03-25 16:01 | ASMTCMCOM ---
CM Note CM Note Notes: CM informed family of pt's choice of [facility]. CM to follow. D/C Plan: [facility] Date Signed: 03/25/2018 04:00 PM Electronically Signed By:Mesha Torres
--- NOTE | 2018-03-25 18:31 | PDCARPN ---
Cardiology Progress Note Chief Complaint: I am feeling much better. Assessment/Plan: Assessment: 1. Third degree heart block s/p pacer implant. the device is working well and has normal thresholds. The patient has intermittent atrial tachydysrhythmia on the intracardiac electrogram. The patient will need to to to a [facility]p facility but I am concerned about the dysuria and urinary retention and the potential for urosepsis or infection of my pacer pocket. I have asked Dr. Mayberry to formally consult with the patient to help us with those issues. Plan: As above. 03/25/18 18:24 Subjective: I am feeling better now that the pacer is in place. Reviewed/Discussed With: family, hospitalist, multidisciplinary team Time Spent with Patient: greater than 25 minutes Time Spent with Patient: Greater than 25 minutes spent on this patients care, greater than 50% of time spent counseling, educating, and coordinating care regarding the above mentioned plan. Objective: Vital Signs (8 Hrs) Temp Pulse Resp BP Pulse Ox 03/25/18 17:43 36.5 C 62 11 L 159/82 H 92 03/25/18 16:00 36.7 C 108 H 16 114/82 H 92 03/25/18 12:12 85 18 101/60 95 Intake/Output (24 Hrs) 03/24/18 03/25/18 03/26/18 05:59 05:59 05:59 Intake Total 990 1450 Output Total 1275 4650 Balance -285 -3200 Intake: Oral (ml) 390 650 IV Intake (ml) 0 800 IV Infused (ml) 600 Ns 1,000 ml @ 100 mls/hr 600 IV CONT SCOTTIE Rx#: [id number] Output: Urine (ml) 1275 4650 Catheter 1275 4650 Other: Output Comment Catheter output in cvc per RN Lynette Number of Voids Catheter 1 Number of Stools Incontinence 1 Result Diagrams: 03/24/18 09:35 03/24/18 09:35 Telemetry: Atrial rhythm disturbance with aberrant conduction and tracking. - Physical Exam Constitutional: no apparent distress Eyes: PERRL, EOMI, anicteric sclera Ears, Nose, Mouth, Throat: moist mucous membranes, no oral ulcers Cardiovascular: systolic murmur (frequent extrasystoles...), other Respiratory: clear to auscultate bilat, no crackles, no wheezes, reduced air movement Gastrointestinal: normoactive bowel sounds, no tenderness, no masses Neurologic: AAOx3 Psychiatric: cooperative, interactive - . Pending Discharge Within 24 Hours: Yes Pending Discharge Within 48 Hours: Yes ICD10 Worksheet Patient Problems: Problems Problem Status Onset Bradycardia Acute Abdominal pain Acute Vomiting Acute
--- NOTE | 2018-03-25 19:05 | HOSPPROG ---
Hospitalist Progress Note Assessment/Plan: * Complete heart block - intermittent -pacemaker implanted by Dr Restrepo yesterday, working well * Dysuria - unclear when exactly this began (ie if symptoms of UTI or paredes irritation); nonetheless, have elected to begin tx with abx given high risk with new pacemaker -start IV CTX 1g q24h -repeat UA, urine culture * Hematuria - seems consistent with paredes trauma/irritation vs infection; h/h stable, INR ok -urology consulted to help with management * Urinary retention - new issue this admission but per Kathy notes he has had retention several years ago -continue proscar, flomax -dc with paredes, will f/u with urology * Cardiomyopathy - EF down (20-25% per LVgram) which is new, grossly euvolemic. Cath 03/24 with non-flow limiting disease but suspicious for stress cardiomyopathy -he is not on guideline directed therapy, discuss with cards in AM, needs repeat TTE in near future * Thrombocytopenia - rather chronic, mild -monitor * Transaminitis - new problem, unclear etiology -recheck in AM * Viral gastroenteritis - resolved * Chronic pancreatitis - denies any Etoh history -denies any digestive issues prior to acute onset at presentation * Lactate elevation - suspect due to dehydration - now clearing * Right leg edema -US negative for DVT Disposition: Remain inpatient for management of suspected UTI/urinary issues. Plan to dc to SNF once medically ready. Subjective: Doing well after pacemaker placement yesterday. He is noting some dysuria. Had long disscussion with him and re: when this started and it is unclear if had symptoms prior to admission or only after paredes placement. He continues to have some mild hematuria. Objective: Vital Signs Temp Pulse Resp BP Pulse Ox 36.5 C 62 11 L 159/82 H 92 03/25/18 17:43 03/25/18 17:43 03/25/18 17:43 03/25/18 17:43 03/25/18 17:43 Laboratory Results 03/24/18 09:35 03/24/18 09:35 03/24/18 03/25/18 03/26/18 05:59 05:59 05:59 Intake Total 990 1450 550 Output Total 1275 4650 Balance -285 -3200 550 PT 15.7 SEC (12.0-15.0) H 03/25/18 11:55 INR 1.23 (0.83-1.16) H 03/25/18 11:55 - Physical Exam Constitutional: no apparent distress, appears nourished, not in pain Eyes: PERRL, anicteric sclera, EOMI Ears, Nose, Mouth, Throat: moist mucous membranes, hearing normal, ears appear normal, no oral mucosal ulcers Cardiovascular: regular rate and rhythym, no murmur, rub, or gallop, No edema Respiratory: no respiratory distress, no rales or rhonchi, clear to auscultation Gastrointestinal: normoactive bowel sounds, soft, non-tender abdomen, no palpable masses Genitourinary: paredes in urethra (red urine in bag) Skin: no rashes or abrasions, no fluctuance, no induration Musculoskeletal: full muscle strength, no muscle tenderness, normal joint ROM Neurologic: AAOx3, sensation intact bilaterally Psychiatric: interacting appropriately, not anxious, not encephalopathic, thought process linear ICD10 Worksheet Patient Problems: Problems Problem Status Onset Abdominal pain Acute Bradycardia Acute Vomiting Acute
[2018-03-26] MEDS: TAMSULOSIN HCL 0.4 MG CAP PO SCH (09:02)
[2018-03-26] MEDS: PANTOPRAZOLE SODIUM 40 MG TAB PO SCH (09:02)
[2018-03-26] MEDS: FINASTERIDE 5 MG TAB PO SCH (09:02)
[2018-03-26] MEDS: SENNOSIDES/DOCUSATE SODIUM TAB PO SCH ×2 (09:02→21:56)
--- NOTE | 2018-03-26 14:00 | HOSPPROG ---
Hospitalist Progress Note Assessment/Plan: * Complete heart block - intermittent -pacemaker implanted by Dr Restrepo yesterday, working well * Dysuria - unclear when exactly this began (ie if symptoms of UTI or paredes irritation); nonetheless, have elected to begin tx with abx given high risk with new pacemaker -start IV CTX 1g q24h, Day 2 today -repeat UA, urine culture * Hematuria - seems consistent with paredes trauma/irritation vs infection; h/h stable, INR ok -urology consulted to help with management. Awaiting recommendations * Urinary retention - new issue this admission but per Kathy notes he has had retention several years ago -continue proscar, flomax -dc with paredes, Urology to consult * Cardiomyopathy - EF down (20-25% per LVgram) which is new, grossly euvolemic. Cath 03/24 with non-flow limiting disease but suspicious for stress cardiomyopathy * Thrombocytopenia - rather chronic, mild -monitor * Transaminitis - new problem, unclear etiology -resolved * Viral gastroenteritis - resolved * Chronic pancreatitis - denies any Etoh history -denies any digestive issues prior to acute onset at presentation * Lactate elevation - suspect due to dehydration - now clearing * Right leg edema -US negative for DVT *constipation. -modify stool regime Disposition: Remain inpatient for management of suspected UTI/urinary issues. Plan to dc to SNF once medically ready. New patient to this provider. Records reviewed. d/w pharmacy, nursing, and CM at bedside Subjective: reports constipation. otherwinse no cp or sob. Objective: Vital Signs Temp Pulse Resp BP Pulse Ox 36.4 C 82 14 109/63 94 03/26/18 12:00 03/26/18 12:00 03/26/18 12:00 03/26/18 12:00 03/26/18 12:00 Laboratory Results 03/26/18 04:12 03/26/18 04:12 03/25/18 03/26/18 03/27/18 05:59 05:59 05:59 Intake Total 1450 750 Output Total 4650 450 Balance -3200 300 PT 15.7 SEC (12.0-15.0) H 03/25/18 11:55 INR 1.23 (0.83-1.16) H 03/25/18 11:55 - Physical Exam Constitutional: no apparent distress Eyes: PERRL Ears, Nose, Mouth, Throat: hearing normal Respiratory: no respiratory distress, No rhonchi Gastrointestinal: No distension Skin: warm Neurologic: AAOx3 Psychiatric: interacting appropriately Lymph, Heme, Immunologic: No petechiae ICD10 Worksheet Patient Problems: Problems Problem Status Onset Abdominal pain Acute Bradycardia Acute Vomiting Acute
[2018-03-26] MEDS: POLYETHYLENE GLYCOL 3350 17 GM PKT PO SCH (15:24)
[2018-03-26] MEDS ORDERED: FUROSEMIDE 20 MG/2 ML VIAL IVP ONE (16:15)
--- NOTE | 2018-03-26 16:38 | SOAPPROG ---
SOAP Progress Note Assessment/Plan: Assessment: Urinary retention with incomplete bladder emptying Acute Pt well known to me and plan for removal of paredes in AM, if pt can no void at his baseline consider CIC. Will add methenamine and vitamin C as antiseptic to try to prevent UTI Plan: as noted 03/26/18 16:35 Subjective: needs to have BM and cant void related to this. Hx of retention for years discussed with me in office previously and today. Objective: Vital Signs Temp Pulse Resp BP Pulse Ox 36.4 C 83 14 118/82 H 94 03/26/18 15:30 03/26/18 15:30 03/26/18 15:30 03/26/18 15:30 03/26/18 15:30 Laboratory Results 03/26/18 04:12 03/26/18 04:12 03/25/18 03/26/18 03/27/18 05:59 05:59 05:59 Intake Total 1450 750 750 Output Total 4650 450 Balance -3200 300 750 PT 15.7 SEC (12.0-15.0) H 03/25/18 11:55 INR 1.23 (0.83-1.16) H 03/25/18 11:55 Physical Exam - Physical Exam General Appearance: alert Respiratory: No respiratory distress Abdomen: soft Neuro/Psych: alert, oriented x 3 ICD10 Worksheet Patient Problems: Problems Problem Status Onset Abdominal pain Acute Bradycardia Acute Urinary retention with incomplete bladder emptying Acute Vomiting Acute - ICD10 Problem Qualifiers (1) Urinary retention with incomplete bladder emptying
[2018-03-26] MEDS: CARVEDILOL 3.125 MG TAB PO SCH (18:10)
[2018-03-26] MEDS: METHENAMINE HIPP 1 GM TAB PO SCH (21:55)
[2018-03-26] MEDS: ASCORBIC ACID 500 MG TAB PO SCH (21:56)
[2018-03-27] MEDS: CARVEDILOL 3.125 MG TAB PO SCH ×2 (07:57→18:07)
--- NOTE | 2018-03-27 09:04 | CPEKG ---
Test Reason : OPEN Blood Pressure : / mmHG Vent. Rate : 084 BPM Atrial Rate : 081 BPM P-R Int : 226 ms QRS Dur : 118 ms QT Int : 398 ms P-R-T Axes : 000 -64 032 degrees QTc Int : 471 ms Sinus rhythm Paired ventricular premature complexes Borderline prolonged MI interval Probable left atrial enlargement Nonspecific IVCD with LAD Inferior infarct, old Confirmed by Ollie Diamond ([id number]) on 03/27/2018 9:03:17 AM Referred By: Confirmed By:Ollie Diamond
--- NOTE | 2018-03-27 09:13 | CPEKG ---
Test Reason : OPEN Blood Pressure : / mmHG Vent. Rate : 069 BPM Atrial Rate : 069 BPM P-R Int : 235 ms QRS Dur : 182 ms QT Int : 511 ms P-R-T Axes : 023 -80 080 degrees QTc Int : 548 ms Ventricular-paced rhythm Ventricular pacing is new in comparison to prior ECG Confirmed by Ollie Diamond ([id number]) on 03/27/2018 9:13:02 AM Referred By: Confirmed By:Ollie Diamond
[2018-03-27] MEDS: PANTOPRAZOLE SODIUM 40 MG TAB PO SCH (09:53)
[2018-03-27] MEDS: METHENAMINE HIPP 1 GM TAB PO SCH ×2 (09:54→21:32)
[2018-03-27] MEDS: ASCORBIC ACID 500 MG TAB PO SCH ×2 (09:54→21:32)
[2018-03-27] MEDS: FINASTERIDE 5 MG TAB PO SCH (09:54)
[2018-03-27] MEDS: TAMSULOSIN HCL 0.4 MG CAP PO SCH (09:54)
[2018-03-27] MEDS: SENNOSIDES/DOCUSATE SODIUM TAB PO SCH ×2 (09:54→21:32)
[2018-03-27] MEDS: POLYETHYLENE GLYCOL 3350 17 GM PKT PO SCH (09:55)
--- NOTE | 2018-03-27 13:20 | SOAPPROG ---
SOAP Progress Note Assessment/Plan: Assessment: Urinary retention Plan: Spoke with RN. Patient failed voiding trial. Based upon Dr Mayberry's note, recommend either paredes catheter or CIC pending patient preference. 03/27/18 13:18 Objective: Vital Signs Temp Pulse Resp BP Pulse Ox 36.6 C 71 24 H 108/66 90 L 03/27/18 12:00 03/27/18 12:00 03/27/18 12:00 03/27/18 12:00 03/27/18 12:00 Microbiology 03/25/18 12:56 Urine Culture - Final Urine,Catheterized 03/26/18 16:00 - Final Sputum, Expectorated Laboratory Results 03/26/18 04:12 03/26/18 04:12 03/26/18 03/27/18 03/28/18 05:59 05:59 05:59 Intake Total 750 750 Output Total 450 750 310 Balance 300 0 -310 PT 15.7 SEC (12.0-15.0) H 03/25/18 11:55 INR 1.23 (0.83-1.16) H 03/25/18 11:55 ICD10 Worksheet Patient Problems: Problems Problem Status Onset Abdominal pain Acute Bradycardia Acute Urinary retention with incomplete bladder emptying Acute Vomiting Acute
[2018-03-27] MEDS ORDERED: FUROSEMIDE 40 MG/4 ML VIAL IVP ONE (14:13)
--- NOTE | 2018-03-27 14:31 | HOSPPROG ---
Hospitalist Progress Note Assessment/Plan: * Complete heart block - intermittent -pacemaker implanted by Dr Restrepo yesterday, working well * Dysuria - unclear when exactly this began (ie if symptoms of UTI or paredes irritation); nonetheless, have elected to begin tx with abx given high risk with new pacemaker -cont CTX 1g q24h, Day 3/4 * Hematuria - seems consistent with paredes trauma/irritation vs infection; h/h stable, INR ok -resolved * Urinary retention - new issue this admission but per Kathy notes he has had retention several years ago -continue proscar, flomax -failed trial off paredes on 03/27, now reinserted * Cardiomyopathy - EF down (20-25% per LVgram) which is new, Cath 03/24 with non-flow limiting disease but suspicious for stress cardiomyopathy -he now has e/o volume overload. will provide additional Lasix today. check CXR in a.m. * Hypoxemia: per above * Thrombocytopenia - rather chronic, mild -monitor * Transaminitis - new problem, unclear etiology -resolved * Viral gastroenteritis - resolved * Chronic pancreatitis - denies any Etoh history -denies any digestive issues prior to acute onset at presentation * Lactate elevation - suspect due to dehydration - now clearing * Right leg edema -US negative for DVT *constipation. -modify stool regime Disposition: Remain inpatient for management of suspected UTI/urinary issues as well as volume overload. Plan to dc to SNF once medically ready. e Subjective: still on 4 L. Still with pedal edema. Had urinary retention, paredes replaced Objective: Vital Signs Temp Pulse Resp BP Pulse Ox 36.6 C 71 24 H 108/66 90 L 03/27/18 12:00 03/27/18 12:00 03/27/18 12:00 03/27/18 12:00 03/27/18 12:00 Microbiology 03/26/18 16:00 - Final Sputum, Expectorated 03/25/18 12:56 Urine Culture - Final Urine,Catheterized Laboratory Results 03/26/18 04:12 03/26/18 04:12 03/26/18 03/27/18 03/28/18 05:59 05:59 05:59 Intake Total 750 750 Output Total 739 872 7870 Balance 300 0 -1860 PT 15.7 SEC (12.0-15.0) H 10/23/18 11:55 INR 1.23 (0.83-1.16) H 03/25/18 11:55 - Physical Exam Constitutional: no apparent distress Eyes: PERRL Ears, Nose, Mouth, Throat: moist mucous membranes, hearing normal Cardiovascular: regular rate and rhythym, edema (1+) Respiratory: no respiratory distress, reduced air movement Gastrointestinal: normoactive bowel sounds, soft, non-tender abdomen Skin: warm Neurologic: AAOx3 Psychiatric: interacting appropriately, not anxious, not encephalopathic ICD10 Worksheet Patient Problems: Problems Problem Status Onset Abdominal pain Acute Bradycardia Acute Urinary retention with incomplete bladder emptying Acute Vomiting Acute
--- NOTE | 2018-03-27 16:52 | SOAPPROG ---
SOAP Progress Note Assessment/Plan: Assessment: Urinary retention with incomplete bladder emptying Acute Pt well known to me and discussed need for CIC or indwelling paredes. he most likely can not do the CIC and no family member to perform, will see again in AM Plan: as noted 03/27/18 16:50 Subjective: could not void, catheter replaced Objective: Vital Signs Temp Pulse Resp BP Pulse Ox 36.3 C 78 22 H 110/68 95 03/27/18 15:53 03/27/18 15:53 03/27/18 15:53 03/27/18 15:53 03/27/18 15:53 Microbiology 03/26/18 16:00 - Final Sputum, Expectorated 03/25/18 12:56 Urine Culture - Final Urine,Catheterized Laboratory Results 03/26/18 04:12 03/26/18 04:12 03/26/18 03/27/18 03/28/18 05:59 05:59 05:59 Intake Total 750 750 Output Total 120 748 8686 Balance 300 0 -1860 PT 15.7 SEC (12.0-15.0) H 03/25/18 11:55 INR 1.23 (0.83-1.16) H 03/25/18 11:55 Physical Exam - Physical Exam General Appearance: alert Respiratory: No respiratory distress Abdomen: soft Neuro/Psych: alert, oriented x 3 ICD10 Worksheet Patient Problems: Problems Problem Status Onset Abdominal pain Acute Bradycardia Acute Urinary retention with incomplete bladder emptying Acute Vomiting Acute - ICD10 Problem Qualifiers (1) Urinary retention with incomplete bladder emptying
--- NOTE | 2018-03-28 08:04 | SOAPPROG ---
SOAP Progress Note Assessment/Plan: Assessment: Urinary retention with incomplete bladder emptying Acute Pt well known to me and discussed need for CIC or indwelling paredes. he most likely can not do the CIC and no family member to perform, BNP elevated and lasix most likely required. Plan: continue paredes 03/28/18 08:03 Objective: Vital Signs Temp Pulse Resp BP Pulse Ox 37.1 C 71 20 95/51 L 92 03/28/18 03:53 03/28/18 05:06 03/28/18 03:53 03/28/18 05:06 03/28/18 05:06 Microbiology 03/26/18 16:00 - Final Sputum, Expectorated 03/25/18 12:56 Urine Culture - Final Urine,Catheterized Laboratory Results 03/27/18 19:55 03/28/18 05:17 03/27/18 03/28/18 03/29/18 05:59 05:59 05:59 Intake Total 750 580 Output Total 750 3970 Balance 0 -3390 PT 15.7 SEC (12.0-15.0) H 03/25/18 11:55 INR 1.23 (0.83-1.16) H 03/25/18 11:55 ICD10 Worksheet Patient Problems: Problems Problem Status Onset Abdominal pain Acute Bradycardia Acute Urinary retention with incomplete bladder emptying Acute Vomiting Acute - ICD10 Problem Qualifiers (1) Urinary retention with incomplete bladder emptying
[2018-03-28] MEDS: SENNOSIDES/DOCUSATE SODIUM TAB PO SCH ×2 (09:38→20:29)
[2018-03-28] MEDS: TAMSULOSIN HCL 0.4 MG CAP PO SCH (09:38)
[2018-03-28] MEDS: FINASTERIDE 5 MG TAB PO SCH (09:38)
[2018-03-28] MEDS: PANTOPRAZOLE SODIUM 40 MG TAB PO SCH (09:38)
[2018-03-28] MEDS: ASCORBIC ACID 500 MG TAB PO SCH ×2 (09:38→20:29)
[2018-03-28] MEDS: METHENAMINE HIPP 1 GM TAB PO SCH ×2 (09:39→20:29)
[2018-03-28] MEDS: CARVEDILOL 3.125 MG TAB PO SCH ×2 (09:40→17:48)
[2018-03-28] MEDS: POLYETHYLENE GLYCOL 3350 17 GM PKT PO SCH (09:42)
--- NOTE | 2018-03-28 12:16 | CPEKG ---
Test Reason : OPEN Blood Pressure : / mmHG Vent. Rate : 085 BPM Atrial Rate : 077 BPM P-R Int : 273 ms QRS Dur : 187 ms QT Int : 535 ms P-R-T Axes : -51 -44 061 degrees QTc Int : 637 ms Atrial-sensed ventricular-paced complexes Confirmed by Ollie Diamond ([id number]) on 03/28/2018 12:15:47 PM Referred By: Confirmed By:Ollie Diamond
--- NOTE | 2018-03-28 15:00 | ASMTCMCOM ---
CM Note CM Note Notes: Patient is POD #2 pacemaker implant. He continues to have issues w urinary retention; urology is following and trying to make a plan re: CIC v indwelling Faria. Discharge plan remains to [facility]. Case Management will follow. Date Signed: 03/28/2018 02:59 PM Electronically Signed By:Kia Oro RN
--- NOTE | 2018-03-28 16:03 | HOSPPROG ---
Hospitalist Progress Note Assessment/Plan: * Complete heart block - intermittent -pacemaker implanted by Dr Restrepo, working well, will need standard f/u * Dysuria - unclear when exactly this began (ie if symptoms of UTI or paredes irritation); nonetheless, team elected to begin tx with abx given high risk with new pacemaker -CTX 1g q24h, Day 09/04. Will stop * Hematuria - seems consistent with paredes trauma/irritation vs infection; h/h stable, INR ok -resolved. Lovenox held * Urinary retention - new issue this admission but per Kathy notes he has had retention several years ago -continue proscar, flomax -failed trial off paredes on 03/27, now reinserted -He likely needs a Paredes life long. -will need f/u with Dr. Mayberry * Cardiomyopathy - EF down (20-25% per LVgram) which is new, Cath 03/24 with non-flow limiting disease but suspicious for stress cardiomyopathy -Volume overload and pulm edema have responded to Lasix IV. His BP today precludes him from further diuresis. He will likely need ongoing diuretics and will order Lasix 20mg PO daily. -cont BB -BP does not tolerate EVERTON-I * Pedal Edema, significantly improved. Holding diuretics today given hypotension *Hypotension: holding Lasix today * Hypoxemia: per above. Is improving. Now on 2 L which is down from 4 L * Thrombocytopenia - rather chronic, mild -monitor * Transaminitis - new problem, unclear etiology -resolved * Viral gastroenteritis - resolved * Chronic pancreatitis - denies any Etoh history -denies any digestive issues prior to acute onset at presentation * Lactate elevation - suspect due to dehydration - now clearing * Right leg edema -US negative for DVT *constipation. -modify stool regime Plan: cont inpatient. He is likely ready for discharge soon, possibly tomorrow. If he is able to tolerate Oral Lasix and BP is stable, he can likely be set up with O2 at SNF and close f/u. Subjective: still on supplemental O2. BP is 89/52. Good urine output, paredes draining well. Objective: Vital Signs Temp Pulse Resp BP Pulse Ox 36.4 C 74 20 89/58 L 92 03/28/18 12:00 03/28/18 12:00 03/28/18 12:00 03/28/18 12:00 03/28/18 12:00 Microbiology 03/26/18 16:00 - Final Sputum, Expectorated 03/25/18 12:56 Urine Culture - Final Urine,Catheterized Laboratory Results 03/27/18 19:55 03/28/18 05:17 03/27/18 03/28/18 03/29/18 05:59 05:59 05:59 Intake Total 750 580 60 Output Total 750 3970 450 Balance 0 -3390 -390 PT 15.7 SEC (12.0-15.0) H 03/25/18 11:55 INR 1.23 (0.83-1.16) H 03/25/18 11:55 - Physical Exam Constitutional: chronically ill appearing Eyes: PERRL, EOMI Ears, Nose, Mouth, Throat: moist mucous membranes, hearing normal Cardiovascular: regular rate and rhythym, edema (Trace LE Edema) Respiratory: no respiratory distress, reduced air movement Gastrointestinal: normoactive bowel sounds, soft, non-tender abdomen Skin: warm Neurologic: AAOx3 Psychiatric: interacting appropriately, not anxious, not encephalopathic Lymph, Heme, Immunologic: No petechiae ICD10 Worksheet Patient Problems: Problems Problem Status Onset Abdominal pain Acute Bradycardia Acute Urinary retention with incomplete bladder emptying Acute Vomiting Acute
--- NOTE | 2018-03-29 05:38 | GPROG ---
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 The pacemaker insertion was successful; however, post pacer insertion, we were able to determine that he is having salvos of atrial tachycardia. He is kn own to have a cardiomyopathy with ejection fraction of approximately 20% to 25% on LV gram, which is felt to be new. His echocardiogram ejection fraction early in admission was 40% to 45%, but was susp icious for stress-induced cardiomyopathy. He also had evidence of volume overload and pulmonary silverio a which have responded to Lasix. We have added Coreg in low dose and I would like to place him on lo w-dose lisinopril if he seems to be euvolemic. His hospital course has been complicated by risk for sacral breakdown as well as an elevated white co unt and dysuria for which Urology has been consulted. Dr. Srinivas Mayberry was kind enough to see the patie nt. Because the patient will require intermittent doses of Lasix to treat his heart failure symptoms , it is probably best that he have an indwelling Faria for the present time as opposed to intermitten t catheterization. He does have urinary retention. PHYSICAL EXAMINATION: GENERAL: Today on evaluation, the patient is in good spirits. He is lying fl at in the bed without significant shortness of breath. VITAL SIGNS: Reveal a blood pressure of 87/5 7, heart rate is 70 with frequent atrial pacing and occasional PVCs on the conveyor monitor. His re spiratory rate is 18. Oxygen saturation is 93% on 2.3 L by nasal cannula. His temperature earlier t lizzeth was 36.7. NECK: Reveals no JVD. CHEST: Clear to auscultation anteriorly bilaterally. HEART: Reveals normal S1 and S2 with intermittent extrasystoles. His heart reveals a regular rate and rhy thm with a systolic murmur consistent with mitral regurgitation. ABDOMEN: Benign, with positive bow el sounds. Nondistended, nontender. EXTREMITIES: Warm, dry, well perfused, without significant per ipheral edema. LABORATORY STUDIES: His last white count was on 03/26, and was down from a high of 13.02 at 6.48. H is platelet count is 134. Coags reveal an INR of 1.23. His venous blood gas: Lactic acid has decre ased from a peak of 2.6 to 1.8. His chemistry shows a sodium of 140, potassium 3.3, BUN and creatini ne are 19 and 0.9 with a calcium of 8.3. His N-terminal proBNP is 2100. His urine is positive for n itrites on the and a catheterization sample from that date was negative for urine culture at 24 hours. The culture from 03/20 was normal urogenital skin micro and his expectorated sputum revealed only mixed oropharyngeal shaina and was inconclusive. IMPRESSION AND PLAN: The patient has congestive heart failure on the basis of his elevated BNP and d ecline in ejection fraction, which was temporally related to bouts of high-grade and then complete he art block with intermittent atrial rhythm disturbance. He has been placed on low-dose angiotensin-co nverting enzyme inhibitor and Coreg with improvement in his heart rhythm. His transaminitis with freda vated liver enzymes has resolved since the pacemaker has been inserted. I do think it would be appro priate to replace his potassium at this point and to continue intermittent Lasix as needed for excess volume. He does not have evidence of flow-limiting obstruction of his coronary circulation and ther efore his cardiomyopathy is at a minimum nonischemic and may be a stress-induced myopathy, as his dis mike anterior wall apex and distal inferior wall were hypokinetic with an appearance that is similar t o some cases of a stress-induced cardiomyopathy that I have seen, also known as takotsubo cardiomyopa thy. The patient does appear to be clinically more stable over the past several days. We will sign off an d see only as needed over the weekend. If you need to have cardiology involvement, please call the c ardiologist signal and communications maintainer via our office at [phone]. /[id number]/MODL
--- NOTE | 2018-03-29 08:22 | HOSPPROG ---
Hospitalist Progress Note Assessment/Plan: #3rd-degree heart block: s/p pacer 03/25 #Cardiomyopathy: non-flow limiting cardiac disease. EF on cath down to 25%. -Coreg. Add Lisinopril 2.5mg if BP tolerates tomorrow #Urinary retention: failed off paredes. Reinserted. FU Dr. Mayberry #Dysuria: unclear if truly infection. urine culture negative. s/p 4 days abx #Hematuria: paredes trauma or infection #Acute hypoxemic resp failure #Transaminitis: resolved #Hypotension: improved. Add EVERTON-i when tolerated #Viral gastroenteritis: resolved #Right leg edema: no DVT on U/S #Chronic pancreatitis: no issues here #Diet: cardiac Inpatient admission for PT, telemetry. Hope to DC in next 1-2 days Subjective: no chest pain Objective: Vital Signs Temp Pulse Resp BP Pulse Ox 36.7 C 67 16 93/49 L 92 03/29/18 04:00 03/29/18 04:00 03/29/18 04:00 03/29/18 04:00 03/29/18 04:00 Microbiology 03/26/18 16:00 - Final Sputum, Expectorated Laboratory Results 03/27/18 19:55 03/28/18 05:17 03/28/18 03/29/18 03/30/18 05:59 05:59 05:59 Intake Total 580 1060 Output Total 3970 1175 Balance -3390 -115 PT 15.7 SEC (12.0-15.0) H 03/25/18 11:55 INR 1.23 (0.83-1.16) H 03/25/18 11:55 - Time Spent With Patient Time Spent with Patient: greater than 35 minutes Time Spent with Patient: Greater than 35 minutes spent on this patients care, greater than 50% of time spent counseling, educating, and coordinating care regarding the above mentioned plan. - Physical Exam Constitutional: no apparent distress Eyes: PERRL Ears, Nose, Mouth, Throat: moist mucous membranes Cardiovascular: regular rate and rhythym, other (pacemaker site dressed, CDI) Respiratory: no respiratory distress Gastrointestinal: normoactive bowel sounds Skin: warm Musculoskeletal: full muscle strength Neurologic: AAOx3, CN II-XII Intact Psychiatric: interacting appropriately ICD10 Worksheet Patient Problems: Problems Problem Status Onset Abdominal pain Acute Bradycardia Acute Urinary retention with incomplete bladder emptying Acute Vomiting Acute
[2018-03-29] MEDS: POLYETHYLENE GLYCOL 3350 17 GM PKT PO SCH (09:50)
[2018-03-29] MEDS: METHENAMINE HIPP 1 GM TAB PO SCH ×2 (09:50→22:43)
[2018-03-29] MEDS: SENNOSIDES/DOCUSATE SODIUM TAB PO SCH ×2 (09:51→22:43)
[2018-03-29] MEDS: TAMSULOSIN HCL 0.4 MG CAP PO SCH (09:51)
[2018-03-29] MEDS: PANTOPRAZOLE SODIUM 40 MG TAB PO SCH (09:51)
[2018-03-29] MEDS: ASCORBIC ACID 500 MG TAB PO SCH ×2 (09:51→22:44)
[2018-03-29] MEDS: FINASTERIDE 5 MG TAB PO SCH (09:51)
[2018-03-29] MEDS: CARVEDILOL 3.125 MG TAB PO SCH ×2 (09:56→17:35)
[2018-03-29] MEDS ORDERED: POTASSIUM CL 20 MEQ TAB PO ONE (11:11)
[2018-03-29] MEDS: LISINOPRIL 5 MG TAB PO SCH ×2 (12:29→12:39)
[2018-03-29] MEDS: FUROSEMIDE 20 MG TAB PO SCH (12:29)
[2018-03-30] MEDS: POLYETHYLENE GLYCOL 3350 17 GM PKT PO SCH (09:36)
[2018-03-30] MEDS: TAMSULOSIN HCL 0.4 MG CAP PO SCH (09:36)
[2018-03-30] MEDS: PANTOPRAZOLE SODIUM 40 MG TAB PO SCH (09:36)
[2018-03-30] MEDS: SENNOSIDES/DOCUSATE SODIUM TAB PO SCH ×2 (09:36→19:49)
[2018-03-30] MEDS: METHENAMINE HIPP 1 GM TAB PO SCH ×2 (09:37→19:49)
[2018-03-30] MEDS: FINASTERIDE 5 MG TAB PO SCH (09:38)
[2018-03-30] MEDS: ASCORBIC ACID 500 MG TAB PO SCH ×2 (09:38→19:49)
[2018-03-30] MEDS: CARVEDILOL 3.125 MG TAB PO SCH ×2 (09:39→17:47)
--- NOTE | 2018-03-30 14:13 | HOSPPROG ---
Hospitalist Progress Note Assessment/Plan: 87-year-old man admitted with nausea and vomiting after eating rotisserie chicken. During his hospitalization he was noted to be intermittently bradycardic responsive to atropine and has undergone a pacemaker placement for third-degree heart block on March 25. # third-degree heart block, status post pacemaker placement on 03/[address] 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 * Medical management * Systolic pressure less than 95 currently will need to hold on adding lisinopril # urinary retention currently on Proscar and tamsulosin. * BPH requiring Paredes * Follow up with Urology after discharge # dysuria with hematuria, culture negative. Likely related to trauma. # nausea vomiting, transaminitis, resolved # hypotension, intermittent will hold on lisinopril may be added as an outpatient if his blood pressure does not improve by tomorrow # chronic pancreatitis, asymptomatic currently # right leg edema with negative ultrasound Subjective: Patient new to me and chart reviewed. Denies pain. Has some difficulty managing since he cannot use his left arm due to pacemaker. Objective: Vital Signs Temp Pulse Resp BP Pulse Ox 36.4 C 70 20 93/51 L 98 03/30/18 11:25 03/30/18 11:25 03/30/18 11:25 03/30/18 11:25 03/30/18 11:25 Microbiology 03/26/18 16:00 - Final Sputum, Expectorated Sputum Culture - Final Laboratory Results 03/27/18 19:55 03/28/18 05:17 03/29/18 03/30/18 03/31/18 05:59 05:59 05:59 Intake Total 1060 250 200 Output Total 1175 550 Balance -115 250 -350 PT 15.7 SEC (12.0-15.0) H 03/25/18 11:55 INR 1.23 (0.83-1.16) H 03/25/18 11:55 - Physical Exam Constitutional: not in pain Eyes: PERRL Ears, Nose, Mouth, Throat: moist mucous membranes Cardiovascular: regular rate and rhythym Respiratory: no respiratory distress Gastrointestinal: soft, non-tender abdomen Genitourinary: no bladder fullness, paredes in urethra Skin: warm Musculoskeletal: generalized weakness Neurologic: No facial droop Psychiatric: interacting appropriately ICD10 Worksheet Patient Problems: Problems Problem Status Onset Bradycardia Acute Abdominal pain Acute Vomiting Acute Urinary retention with incomplete bladder emptying Acute
[2018-03-31] MEDS: POLYETHYLENE GLYCOL 3350 17 GM PKT PO SCH (08:33)
[2018-03-31] MEDS: FUROSEMIDE 20 MG TAB PO SCH (08:34)
[2018-03-31] MEDS: FINASTERIDE 5 MG TAB PO SCH (08:34)
[2018-03-31] MEDS: PANTOPRAZOLE SODIUM 40 MG TAB PO SCH (08:34)
[2018-03-31] MEDS: CARVEDILOL 3.125 MG TAB PO SCH (08:34)
[2018-03-31] MEDS: METHENAMINE HIPP 1 GM TAB PO SCH (08:34)
[2018-03-31] MEDS: TAMSULOSIN HCL 0.4 MG CAP PO SCH (08:34)
[2018-03-31] MEDS: ASCORBIC ACID 500 MG TAB PO SCH (08:34)
[2018-03-31] MEDS: SENNOSIDES/DOCUSATE SODIUM TAB PO SCH (08:35)
--- NOTE | 2018-03-31 08:38 | PDIAF ---
- Diagnosis Diagnosis: heart block, s/p pacemaker, urinary retention, wound care Code Status: Full Code - Medication Management Discharge Medications: Medications to Continue on Transfer Carboxymethylcellulose 1% [Refresh Celluvisc (*)] 1 drop EACHEYE DAILY PRN 03/20 [Last Taken Unknown] Finasteride [Proscar 5 MG (*)] 5 mg PO DAILY 03/20/18 [Last Taken 03/18/18] Multivitamins [Multivitamin (*)] 1 each PO DAILY 03/20/18 [Last Taken Unknown] [place]-3 Fatty Acids [Fish Oil 1000 mg (*)] 1,000 mg PO DAILY 03/20/18 [Last Taken Unknown] Acetaminophen [Tylenol ES 500 mg (*)] 1,000 mg PO TID PRN tab 03/31/18 [Last Taken Unknown] Ascorbic Acid [Vitamin C 500 mg (*)] 500 mg PO BID tab 03/31/18 [Last Taken Unknown] Carvedilol [Coreg (*)] 3.125 mg PO BIDMEAL tab 03/31/18 [Last Taken Unknown] Furosemide [Lasix 20 MG (*)] 20 mg PO EVERY OTHER DAY tab 03/31/18 [Last Taken Unknown] Methenamine Aiden [Hiprex 1 gm (*)] 1 gm PO BID tab 03/31/18 [Last Taken Unknown ] Nitroglycerin [Nitrostat 0.4 mg (*)] 0.4 mg SL PRN PRN btl 03/31/18 [Last Taken Unknown] Polyethylene Glycol 3350 [Miralax 17 gm (*)] 17 gm PO DAILY pkt 03/31/18 [Last Taken Unknown] Sennosides/Docusate Sodium [Senokot-S] 1 tab PO BID tab 03/31/18 [Last Taken Unknown] Sodium Cl Nasal [[place] (*)] 1 spray EACHNARE PRN PRN btl 03/31/18 [Last Taken Unknown] Tamsulosin HCl [Flomax 0.4 MG (*)] 0.4 mg PO DAILY cap 03/31/18 [Last Taken Unknown] Discharge Medications: Refer to the Discharge Home Medication list for PRN reason. - Orders Services needed: Registered Nurse, Certified Hand Cloth Examiner, Master Reviewer Sales , Physical Therapy, Occupational Therapy Diet Recommendation: no restrictions on diet, cardiac -low fat low salt Diet Texture: Regular Texture Diet Paredes: Yes (follow up with [facility] for indwelling paredes and possible bladder training.) Activity/Weight Bearing Restrictions: pacemaker restrictions for another week, Follow up with [facility] for details Additional Instructions: Wound care and follow up needs Change dressings to Sacrum/Coccyx every 3 days and prn. 1. Clean with ns and gauze 2. Skin prep derick wound 3. Wound gel to wound bed 4. Cover with Mepilex Border Sacrum Please follow up within 3- 4 weeks of discharge with outpatient [facility] if you continue to have issues with your wounds: You may reach them at [phone] for an appointment and continued management of your wounds. Please call them alia to schedule your appointment as they fill up quickly. If before that time you have any issues please follow up with your PCP. Wound care: Bedsore (Pressure injury) care: You have a stage 2 pressure injury (also known as a bedsore) on your tailbone ( coccyx). To help heal this wound and avoid further injury please do the followin. Reposition yourself frequently, at least every 15 minutes when sitting. We recommend sitting on an air cushion. Please never use a doughnut. 2. When youre in bed, try to rest on your side as much as possible, and change position every two hours (for example, turn or tilt from your right side toward your left).~ If you sleep on a sleep number or medical bed, keep the head of the bed below 30 degrees and keep all pressure off your low back for at least 5 minutes at least every two hours.~ 3. As needed, you may use Calazime, dimethicone moisture barrier cream, or any koih-vul-wvvvaim diaper rash cream to help prevent or treat a moisture- related rash to your bottom area and buttocks. 4. Please contact [facility] outpatient [facility] for an appointment, at , If your wounds re/open or dont improve, or if you have any further questions or concerns. Angie FARAH Follow up with [facility], Dr. West or PATRICIA Serrano in 1-2 weeks for follow up of pacemaker. Follow up with Dr. Mayberry, [facility] for urinary retention and indwelling paredes. Follow up in 2-3 weeks. - Follow Up Care
--- NOTE | 2018-03-31 08:59 | ASMTLACE ---
YUANE Length of stay for Answers: 7-13 days current admission Comorbidities - select Answers: Other Notes: CHB, PPM, Urinary all that apply retention # of Emergency department Answers: 1-2 visits in the last 6 months Score: 7 Date Signed: 03/31/2018 08:58 AM Electronically Signed By:Neisha Akins RN
[2018-03-31 09:01] VITALS: BP 98/65
--- NOTE | 2018-03-31 09:08 | GDS ---
DIAGNOSES: 1. Third-degree heart block status post pacemaker placement on March 25. 2. Cardiomyopathy, non flow-limiting cardiac disease on angiogram, ejection fraction estimated at 25 %. Intolerant of lisinopril at this time due to low blood pressure. 3. Urinary retention with an indwelling Faria. Follow up with Dr. Mayberry as an outpatient for voidin g trials. 4. Dysuria. Currently on prophylactic medication while here and Faria in place. 5. Hematuria, likely Faria trauma. 6. Viral gastroenteritis and nausea and vomiting on admission, resolved. 7. Hypotension. Consider adding EVERTON inhibitor at low dose when systolic blood pressure improves. C an do this as an outpatient. 8. Right leg edema. No deep vein thrombosis on ultrasound. 9. Chronic pancreatitis. 10. Acute hypoxic respiratory failure requiring low-flow oxygen at the time of discharge. 11. Deconditioning. Will need ongoing rehabilitation post hospitalization. CONSULTATIONS: Cardiology. PROCEDURES DONE: 1. Abdominal CT scan: Calcifications within the pancreas, enlarged prostate, and bladder calculi. No other significant abnormalities. 2. Echocardiogram: EF estimated at 46%. 3. Selective coronary angiography with left heart catheterization: Non flow-limiting coronary arter y disease and an EF estimated at 20-25 percent, possible takotsubo cardiomyopathy. 4. MRI condition dual-chamber pacemaker insertion. Device is Edora 8 D-RT, MR conditional device. Ventricular lead is Biotronik, atrial lead is Solia. 5. Wound care. HOSPITAL COURSE: The patient is an 87-year-old, relatively healthy man who was admitted with nausea, vomiting, and abdominal pain. On admission, CT scan was fairly unremarkable. However, he was noted to have bradycardic episodes on telemetry. He was admitted to PCU and monitored. His abdominal sym ptoms abated. However, he continued to have evidence of bradycardia throughout his hospitalization. Cardiology was consulted and placed a pacemaker after performing a left heart cath with the results noted above. He tolerated the procedures well. However, there was a question of urinary retention a nd possible UTI. Urology was consulted and placed him on a prophylactic medication, methenamine, to be on while he has an indwelling Faria catheter to prevent secondary infection of the pacemaker. He continues to have significant urinary retention and requires an indwelling catheter. This can be fol lowed up by Dr. Mayberry after discharge. He also had evidence of deconditioning and difficulty maneuve ring with his pacemaker restrictions, and will need ongoing rehab post hospitalization. He will be d ischarged to [facility] for rehab. CONDITION ON DISCHARGE: Good. Blood pressure runs 90/55, slightly more elevated in the a.m. Heart rate in the 70s. He is requiring 3.5 L per nasal cannula. He is alert. He is oriented and comforta ble. DISCHARGE MEDICATIONS: Please see discharge medication form. FOLLOWUP: He needs to follow up with Dr. Mayberry on [facility] for his indwelling Faria catheter. He needs to follow up with Dr. West or Maggie, his nurse practitioner, for pacemaker followup a nd will need ongoing wound care with wound clinic followup. Total time spent with patient on day of discharge in coordination of care is 35 minutes. /[id number]/MODL
== END 2018-03-31 14:10 | DRG 242 ==
LOC: EDUNIT# → F2W 04:37 → OBSVTOIN 12:39 → F1N 03-26 19:30
PROVIDERS: ADMIT Student in an Organized Health Care Education/Training Program; ATTEND Internal Medicine
DX: I44.2 Atrioventricular block, complete (principal); I44.1 Atrioventricular block, second degree; I47.2 Ventricular tachycardia; I42.8 Other cardiomyopathies; I51.81 Takotsubo syndrome; I50.21 Acute systolic (congestive) heart failure; A08.4 Viral intestinal infection, unspecified; E86.0 Dehydration; J96.01 Acute respiratory failure with hypoxia; I95.9 Hypotension, unspecified; N40.1 Benign prostatic hyperplasia with lower urinary tract symptoms; R33.8 Other retention of urine; R31.9 Hematuria, unspecified; D69.6 Thrombocytopenia, unspecified; R60.0 Localized edema; L89.152 Pressure ulcer of sacral region, stage 2; R53.1 Weakness; K86.1 Other chronic pancreatitis; I71.2 Thoracic aortic aneurysm, without rupture; I34.0 Nonrheumatic mitral (valve) insufficiency
CPT/HCPCS: 84484-PO; 96374; 97116-GP; 97161-GP; 97165-GO; 97530-GO; 97530-GP; 97535-GO; C1769; C1785; C1898; G8978-GP-CK; G8979-GP-CI; G8987-GO-CJ; G8988-GO-CI; J0461; J0690; J0696; J1644; J1650; J1940; J2250; J2550; J3010; Q9967

== ENCOUNTER 2018-05-12 10:00 | Day surgery (SDC) | payer OTHER, BC ==
--- NOTE | 2018-05-12 10:17 | EDPHY ---
H & P Time Seen by Provider: 05/12/18 10:11 HPI/ROS: CHIEF COMPLAINT: Swallowed foreign body HISTORY OF PRESENT ILLNESS: Patient is an 87-year-old man who was at the dentist office having a dental bridge removed when he accidentally swallowed or inhaled it. He has not had any difficulty breathing. He is not choking or coughing. He states that he has some discomfort in his epigastric region. He is handling his saliva. This happened about an hour prior to arrival. No vomiting. No bloody sputum. Severity: Moderate Modifying factors: None REVIEW OF SYSTEMS: Constitutional: denies: chills, fever, recent illness, recent injury EENTM: denies: blurred vision, double vision, nose congestion Respiratory: denies: cough, shortness of breath Cardiac: denies: chest pain, irregular heart rate, lightheadedness, palpitations Gastrointestinal/Abdominal: See HPI denies: abdominal pain, diarrhea, nausea, vomiting, blood streaked stools Genitourinary: denies: dysuria, frequency, hematuria, pain Musculoskeletal: denies: joint pain, muscle pain Skin: denies: lesions, rash, jaundice, bruising Neurological: denies: headache, numbness, paresthesia, tingling, dizziness, weakness Hematologic/Lymphatic: denies: blood clots, easy bleeding, easy bruising Immunologic/allergic: denies: HIV/AIDS, transplant 10 systems reviewed and negative except as noted EXAM: GENERAL: Well-appearing, well-nourished and in no acute distress. HEAD: Atraumatic, normocephalic. EYES: Pupils equal round and reactive to light, extraocular movements intact, sclera anicteric, conjunctiva are normal. ENT: TMs normal, nares patent, oropharynx clear without exudates. Moist mucous membranes. NECK: Normal range of motion, supple without lymphadenopathy or JVD. LUNGS: Breath sounds clear to auscultation bilaterally and equal. No wheezes rales or rhonchi. HEART: Regular rate and rhythm without murmurs, rubs or gallops. ABDOMEN: Soft, nontender, normoactive bowel sounds. No guarding, no rebound. No masses appreciated. BACK: No CVA tenderness, no spinal tenderness, step-offs or deformities EXTREMITIES: Normal range of motion, no pitting or edema. No clubbing or cyanosis. NEUROLOGICAL: Cranial nerves II through XII grossly intact. Normal speech, normal gait. 5/5 strength, normal movement in all extremities, normal sensation , normal reflexes PSYCH: Normal mood, normal affect. SKIN: Warm, dry, normal turgor, no visible rashes or lesions. Source: Patient Exam Limitations: No limitations - Personal History Tetanus Vaccine Date: unknown - Medical/Surgical History Hx Asthma: No Hx Chronic Respiratory Disease: No Hx Diabetes: No Hx Cardiac Disease: No Hx Renal Disease: No Hx Cirrhosis: No Hx Alcoholism: No Hx HIV/AIDS: No Hx Splenectomy or Spleen Trauma: No Other PMH: enlarged prostate, intermittent PVCs, appendectomy, inguinal hernia repair - Social History Smoking Status: Never smoked Alcohol Use: Sober Drug Use: None Constitutional: Initial Vital Signs Temperature (C) 36.6 C 05/12/18 10:08 Heart Rate 86 05/12/18 10:08 Respiratory Rate 18 05/12/18 10:08 Blood Pressure 106/66 05/12/18 10:08 O2 Sat (%) 93 05/12/18 10:08 O2 Delivery Mode Nasal Cannula O2 (L/minute) 2 Allergies/Adverse Reactions: ofloxacin Allergy (Unknown, Verified 05/12/18 10:44) Rash Sulfa (Sulfonamide Antibiotics) Allergy (Verified 05/12/18 10:08) Home Medications: Medication Instructions Recorded Carboxymethylcellulose 1% [Refresh 1 drop EACHEYE DAILY PRN 03/20/18 Celluvisc (*)] Finasteride [Proscar 5 MG (*)] 5 mg PO DAILY 03/20/18 Multivitamins [Multivitamin (*)] 1 each PO DAILY 03/20/18 [place]-3 Fatty Acids [Fish Oil 1000 1,000 mg PO DAILY 03/20/18 mg (*)] Acetaminophen [Tylenol ES 500 mg 1,000 mg PO TID PRN tab 03/31/18 (*)] Ascorbic Acid [Vitamin C 500 mg 500 mg PO BID tab 03/31/18 (*)] Carvedilol [Coreg (*)] 3.125 mg PO BIDMEAL tab 03/31/18 Nitroglycerin [Nitrostat 0.4 mg 0.4 mg SL PRN PRN btl 03/31/18 (*)] Polyethylene Glycol 3350 [Miralax 17 gm PO DAILY pkt 03/31/18 17 gm (*)] Sennosides/Docusate Sodium 1 tab PO BID tab 03/31/18 [Senokot-S] Sodium Cl Nasal [[place] (*)] 1 spray EACHNARE PRN PRN btl 03/31/18 Tamsulosin HCl [Flomax 0.4 MG (*)] 0.4 mg PO DAILY cap 03/31/18 Medical Decision Making - Diagnostics Imaging Results: Imaging Impressions Chest X-Ray 05/12/18 10:14 Impression: 1. Dental bridge in the bronchus intermedius. 2. Decreased mild interstitial prominence, which could be related to interstitial lung disease, asymmetric pulmonary edema, or other etiology. Findings discussed with TRUDY BYRNES 05/12/2018 at 10:40. Imaging: Discussed imaging studies w/ laundry folder Radiologist ED Course/Re-evaluation: Patient's x-ray appears to show dental foreign body in the right main bronchus. Patient is handling as well. He is in no distress. He is not desaturating. I paged pulmonology and spoke with Dr. Hou who will talked to his partner to him Jefe who is currently in the ICU and will plan for bronchoscopy. Will place IV and obtain lab work. 10:50 a.m. the OR is calling for the patient at 1:00 p.m.. They will plan to do bronchoscopy. We have called [facility] for transport Differential Diagnosis: Partial list of the Differential diagnosis considered include but were not limited to; aspirated foreign body, esophageal foreign body and although unlikely based on the history and physical exam, I also considered perforation, pneumonia ischemia. Critical Care Time: Critical care time spent by me, Dr. Byrnes exclusive with this patient was 35 minutes, exclusive of the PA time exclusive of procedures. The organ system that was at risk was respiratory and I gave testing, consultation and transfer to prevent worsening of the patient's condition - Data Points Medications Given: Discontinued Medications Fentanyl (Sublimaze) 50 mcg IVP .STK-MED ONE Stop: 05/12/18 14:00 Last Admin: 05/12/18 13:59 Dose: 50 mcg Sodium Chloride (Ns) 1,000 mls @ 0 mls/hr IV ONCE ONE; Wide Open PRN Reason: Protocol Stop: 05/12/18 10:33 Last Admin: 05/12/18 10:45 Dose: 1,000 mls Lidocaine HCl (Lidocaine Hcl 4%) 5 mg IH .STK-MED ONE Stop: 05/12/18 14:01 Last Admin: 05/12/18 14:00 Dose: 5 mg Midazolam HCl (Versed) 2 mg IVP .STK-MED ONE Stop: 05/12/18 14:00 Last Admin: 05/12/18 13:59 Dose: 2 mg Point of Care Test Results: CBC CBC Collection Date 05/12/18 CBC Collection Time 10:42 WBC 5.4 RBC 4.92 HGB 15.8 HCT 45.9 PLT 150 Neut # 3.8 Neut 70.9 LYMPH # 0.9 LYMPH 16.3 Other WBC # 0.7 Other WBC 12.8 MCV 93.3 Departure - Departure Disposition: To OP Cath/Surgery Clinical Impression: Bronchial foreign body Qualifiers: Encounter type: initial encounter Qualified Code(s): T17.508A - Unspecified foreign body in bronchus causing other injury, initial encounter Condition: Fair
[2018-05-12] MEDS ORDERED: NS 1,000 ML IV ONE (10:32)
[2018-05-12] MEDS ORDERED: LR 1,000 ML IV ONE (12:43)
[2018-05-12] MEDS ORDERED: LIDOCAINE 1% 300 MG/30 ML SDV ONE (12:55)
[2018-05-12] MEDS ORDERED: EPINEPHrine 1 MG/ML INJ ONE (12:55)
[2018-05-12] MEDS ORDERED: ALBUTEROL 3 ML DEYVIAL ONE (12:55)
[2018-05-12] MEDS ORDERED: FLUMAZENIL 0.5 MG/5 ML MDV IVP ONE (13:07)
[2018-05-12] MEDS ORDERED: NALOXONE HCL 0.4 MG/ML INJ ONE (13:07)
[2018-05-12] MEDS ORDERED: MIDAZOLAM 2 MG/2 ML VIAL ONE (13:07)
[2018-05-12] MEDS ORDERED: fentaNYL 100 MCG/2 ML INJ ONE (13:08)
[2018-05-12] MEDS ORDERED: MIDAZOLAM 2 MG/2 ML VIAL IVP ONE (13:59)
[2018-05-12] MEDS ORDERED: fentaNYL 100 MCG/2 ML INJ IVP ONE (13:59)
[2018-05-12] MEDS ORDERED: LIDOCAINE 4% 5 ML AMP IH ONE (14:00)
[2018-05-12 14:01] VITALS: BP 100/66
--- NOTE | 2018-05-12 14:18 | PDPROPOC ---
Sedation Plan of Care Sedation Plan of Care: vital signs stable, mental status noted, patient educated of risks, benefits, alternatives, patient can tolerate sedation ASA Classification: ASA 2 Planned drugs: fentanyl, midazolam Mallampati Score: Class 2 Mallampati Reference Image:
--- NOTE | 2018-05-12 14:28 | BVPULMO ---
[facility] Surgical Services- Pulmonology Patient Name: Willi Ludwig Procedure Date: 05/12/2018 12:57 PM Patient Type: Outpatient Attending MD/ER Physician: Will Mayberry MD Procedure: Bronchoscopy Indications: foreign body extraction Bronchus foreign body Providers: Will Mayberry MD Medicines: Lidocaine 1% applied to cords 2 mL, Lidocaine 1% applied to the tracheobronchia l tree 5 mL, Fentanyl 50 mcg IV, Midazolam 2 mg IV Complications: No immediate complications Procedure: After informed consent, a time out was performed. N95 masks were worn, and the procedure was done in a negative pressure room. The patient was given appropria te topical anesthesia and intravenous sedation. The fiberopic bronchoscope was pas sed via a bite block orally into the larynx and subsequently into the lower trachea bronchial tree. Throughout the procedure, the patient's blood pressure, pulse, and oxygen saturations were monitored continuously. The Bronchoscope (Video) was introduced through the mouth and advanced to the tracheobronchial tree. The procedure was accomplished without difficulty. The patient tolerated the proced ure well. Findings: Specific locations: The following were directly visualized, and are normal: lar ynx, vocal cord motion, trachea, gita, left mainstem bronchus, right mainstem bron chus, bronchus intermedius, left upper lobe including subsegments,left lower lobe including subsegments, right upper lobe including subsegments, right middle lob e including subsegments, right lower lober including subsegments. Right Lung Abnormalities: A tooth/dental bridge measuring about 3 cm was found in the right lower lobe. I was able to snare the device with a basket and extract it without major difficulty. Post Op Diagnosis: - Bronchus foreign body - A tooth was found in the right lower lobe. - No specimens collected. Estimated Blood Loss: Estimated blood loss: none. Recommendation: - The patient will be observed post-procedure, until all discharge criteria are met. - The patient was advised to call or return to the clinic if there are signs or symptoms suggesting a complication/adverse reaction from the procedure. - Patient has a contact number available for emergencies. The signs and symptom s of potential delayed complications were discussed with the patient. Return to norm al activities tomorrow. Written discharge instructions were provided to the patien t. Will Mayberry MD Will Mayberry MD 05/12/2018 2:28:11 PM This report has been signed electronicallyWill Mayberry MD Number of Addenda: 0 Note Initiated On: 05/12/2018 12:57 PM [email or web address]
== END 2018-05-12 15:00 | disposition home or self-care (01) ==
LOC: CED 10:00 → FSGY 12:53
PROVIDERS: ATTEND Internal Medicine Critical Care Medicine
PROC: 0BC68ZZ Extirpation of Matter from Right Lower Lobe Bronchus, Via Natural or Artificial Opening Endoscopic (ICD-10-PCS; principal; 2018-05-12 13:00)
DX: T17.508A Unspecified foreign body in bronchus causing other injury, initial encounter (principal); E86.9 Volume depletion, unspecified
CPT/HCPCS: 71046-PO; J0171; J2250; J2310; J3010; J7613